=== PATIENT | female | born 1945 | race Caucasian/White ===

== ENCOUNTER → 2017-08-21 16:50 | Outpatient (CLI) | payer MEDICARE, BC ==
[2015-03-20 10:16] VITALS: BMI 25.5
[~2017-08-21 16:50] MED LIST: HYDROCHLOROTHIA25 MG GT; HYDROCODONE-APA1 TAB PO; K-DUR20 MEQ PO; KLONOPIN0.5 MG PO; NORVASC10 MG PO; PLAVIX75 MG PO; PRAVACHOL20 MG PO; PULMICORT0.5 MG/21 UPD; VITAMIN D31000 UNIT PO; ZESTRIL40 MG PO
== END | disposition home or self-care (01) ==
LOC: D.US 16:30
DX: M79.604 Pain in right leg (principal); R22.41 Localized swelling, mass and lump, right lower limb

== ENCOUNTER → 2018-03-05 20:11 | Outpatient (CLI) | payer MEDICARE, BC ==
[2015-03-20 10:16] VITALS: BMI 25.5
== END | disposition home or self-care (01) ==
LOC: D.MAMMO 14:45
DX: Z12.31 Encounter for screening mammogram for malignant neoplasm of breast (principal)

== ENCOUNTER → 2018-03-28 17:30 | Outpatient (CLI) | payer MEDICARE, BC ==
[2015-03-20 10:16] VITALS: BMI 25.5
== END | disposition home or self-care (01) ==
LOC: D.MAMMO 10:30
DX: R92.8 Other abnormal and inconclusive findings on diagnostic imaging of breast (principal)

== ENCOUNTER → 2018-04-10 13:19 | Outpatient (CLI) | payer MEDICARE, BC ==
[2015-03-20 10:16] VITALS: BMI 25.5
== END | disposition home or self-care (01) ==
LOC: D.US 13:19
DX: R92.8 Other abnormal and inconclusive findings on diagnostic imaging of breast (principal)

== ENCOUNTER → 2018-05-08 12:27 | Outpatient (CLI) | payer MEDICARE, BC ==
[2015-03-20 10:16] VITALS: BMI 25.5
== END | disposition home or self-care (01) ==
LOC: D.US 12:27
DX: I65.23 Occlusion and stenosis of bilateral carotid arteries (principal); M79.605 Pain in left leg; M79.604 Pain in right leg

== ENCOUNTER → 2018-07-10 10:04 | Outpatient (CLI) | payer MEDICARE, BC ==
[2015-03-20 10:16] VITALS: BMI 25.5
== END | disposition home or self-care (01) ==
LOC: D.CT 07-08 13:00
DX: M79.605 Pain in left leg (principal); M79.604 Pain in right leg; I73.9 Peripheral vascular disease, unspecified

== ENCOUNTER 2018-07-11 08:22 | Outpatient (CLI) | payer MEDICARE, BC ==
[2015-03-20 10:16] VITALS: BMI 25.5
== END 2018-07-11 23:59 | disposition home or self-care (01) ==
LOC: D.MAMMO 08:22
DX: N63.23 Unspecified lump in the left breast, lower outer quadrant (principal)

== ENCOUNTER 2018-12-11 15:29 | Inpatient (IN) | payer MEDICARE, BC ==
[~2018-12-11] VITALS: Ht 172.7 cm; Wt 76.4 kg
[2018-12-11] MEDS ORDERED: TESSALON PERLE100 MG (15:45)
[2018-12-11 16:09] VITALS: BP 132/75; BMI 25.6
[2018-12-11 16:46] LABS: BASOPHILS 0.4 % (0-2); EOSINOPHILS 0.5 % (0-7); HEMATOCRIT 46.4 % (36.0-48.0); HEMOGLOBIN 15.8 g/dL (12-16); IMMATURE GRANULOCYTES 0.1 % (0-5); LYMPHOCYTES 42.4 % (15-50); MCH 33.1 pg (26.0-34.0); MCHC 34.1 g/dL (31.0-37.0); MCV 97.3 fL (80.0-100.0); MEAN PLATELET VOLUME 11.7 fL (7.4-10.4); MONOCYTES 11.6 % (2-11); RBC 4.77 10x6/uL (4.00-5.40); RDW 13.8 % (11.5-14.5)
[2018-12-11 16:55] LABS: ANION GAP 11.9 mmol/L (8-16); CALCIUM 9.3 mg/dL (8.5-10.1); CARBON DIOXIDE 28.9 mmol/L (21.0-32.0)
[2018-12-11 16:58] LABS: PLATELET COUNT 154 10x3/uL (130-400)
[2018-12-11 17:12] LABS: POTASSIUM - SERUM 2.8 mmol/L (3.5-5.1)
[2018-12-11 20:30] VITALS: BP 106/46
[2018-12-11 20:39] VITALS: BP 167/79
[2018-12-12 00:20] VITALS: BP 139/72
[2018-12-12 05:05] VITALS: BP 183/87
[2018-12-12 06:31] LABS: ALBUMIN 3.1 g/dL (3.4-5.0); ANION GAP 13.9 mmol/L (8-16); BILIRUBIN - TOTAL 0.25 mg/dL (0.2-1.3); CALCIUM 8.8 mg/dL (8.5-10.1); CARBON DIOXIDE 27.5 mmol/L (21.0-32.0); PROTEIN - SERUM 6.5 g/dL (6.4-8.2)
[2018-12-12 06:32] LABS: POTASSIUM - SERUM 3.4 mmol/L (3.5-5.1)
--- NOTE | 2018-12-12 08:13 | HP ---
PATIENT: HUMBERTO CHOW MEDICAL RECORD: [id number] ACCOUNT: [id number] LOCATION:D.[facility] Ramach[facility]ran1 : 47 ADMISSION DATE: 12/11/18 PCP: KIRSTY GONSALEZ MD HISTORY AND PHYSICAL EXAMINATION DATE OF ADMISSION: 12/11/2018 CHIEF COMPLAINT: Cough, shortness of breath. HISTORY OF PRESENT ILLNESS: This is a 73-year-old female who presented to my office today with continued cough and congestion. Her called me the morning of 12/08/2018, with coughing and congestion for a couple of days. I called her out a Z-HIRAM and she started that. Her took her to a walk-in clinic on [address] that afternoon. She had a chest x-ray there. She was given a shot of what sounds like steroids and had a prescription written for Tessalon Perles and Ventolin HFA inhaler. She basically has not gotten any better in the last couple of days. She was brought into the room, in my office, in a wheelchair because she cannot walk very far due to acute shortness of breath. She states just moving around makes her short of breath. She has never had anything like this before. She has long history of smoking and quit she states about 6 months ago. She has no known diagnosis of COPD or emphysema. In my office, her O2 sat was 89-90% on room air. She had episodes of coughing and with her dyspnea, she was directly admitted to [facility]. PAST MEDICAL AND SURGICAL HISTORY: She has high cholesterol, hypertension, coronary artery disease. She has had a TIA. She has osteopenia. 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 PAST SURGICAL HISTORY: She has had a bladder suspension. She has had aortofemoral bypass surgery and has had repair of abdominal aortic aneurysm. HOME MEDICATIONS: Include pravastatin 10 mg at bedtime, Plavix 75 mg once a day, hydrochlorothiazide 25 mg once a day, potassium 20 mEq once a day, clonazepam 0.5 mg 3 times a day for myoclonus. ALLERGIES: ASPIRIN, IODINE AND SHELLFISH. HABITS: Again, former smoker, just quit a few months ago. She drinks alcohol socially. No illicit drug use. FAMILY HISTORY: Noncontributory. PHYSICAL EXAMINATION: VITAL SIGNS: Temperature 98.1, pulse 90, respirations 20, blood pressure 167/79. In my office, she was tachypneic. She had a deep cough. HEENT: Grossly within normal limits. NECK: Supple. No JVD or bruit. HEART: Regular rate and rhythm without murmur. LUNGS: With scattered wheezes and a few rales diffusely. ABDOMEN: Soft. EXTREMITIES: No edema. LABORATORY DATA: Done in the hospital: ABG showed a pH 7.442, pCO2 of 39, pO2 65, O2 sat was 93%. CBC showed a white count of 8000, hemoglobin 15.8, hematocrit 46.4, 45% neutrophils. Sodium 142, potassium 2.8, chloride 104, CO2 HISTORY AND PHYSICAL [id number] CHOW,HUMBERTO NIEVES of 28.9, BUN 25, creatinine 1.0, glucose 101, and calcium 9.3. Chest x-ray is pending. ASSESSMENT: 1. Acute bronchitis. 2. Acute respiratory failure. 3. Possible chronic obstructive pulmonary disease. PLAN: She is admitted, given oxygen, start antibiotics, IV steroids, and respiratory therapy. Pulmonology is being consulted. We will continue her usual home medications. Lovenox is ordered as is Pepcid for stress ulcer prevention. Other tests or procedures as warranted. TRANSINT:[id number] Voice Confirmation ID: [id number] DOCUMENT ID: [id number] KIRSTY GONSALEZ MD at 0813 CC: [id number] DICTATION DATE: 12/12/18 0116 FILLER AND TRIMMER: 12/12/18 0209 ADM IN [facility] [address] [place] [address]
[2018-12-12 09:12] VITALS: BP 183/68
[2018-12-12 12:35] VITALS: Ht 172.7 cm; Wt 76.4 kg
[2018-12-12 16:45] VITALS: BP 165/71
[2018-12-12 20:03] VITALS: BP 175/76
[2018-12-13 00:23] VITALS: BP 139/64
[2018-12-13 05:19] VITALS: BP 124/70
[2018-12-13 07:44] LABS: BILIRUBIN - TOTAL 0.18 mg/dL (0.2-1.3); CALCIUM 8.5 mg/dL (8.5-10.1); CARBON DIOXIDE 23.9 mmol/L (21.0-32.0); PROTEIN - SERUM 6.2 g/dL (6.4-8.2)
[2018-12-13 07:45] LABS: ANION GAP 16.9 mmol/L (8-16); CREATININE - SERUM 1.3 mg/dL (0.6-1.3)
[2018-12-13 07:46] LABS: POTASSIUM - SERUM 2.8 mmol/L (3.5-5.1)
[2018-12-13 08:25] VITALS: BP 179/66
[2018-12-13 12:45] VITALS: BP 124/73
[2018-12-13 16:40] VITALS: BP 153/61
[2018-12-13 19:36] LABS: POTASSIUM - SERUM 2.9 mmol/L (3.5-5.1)
[2018-12-13 20:00] VITALS: BP 104/77
[2018-12-14] VITALS (7 sets, daily range): BP systolic 110–164; BP diastolic 63–81
[2018-12-14 06:05] LABS: ALBUMIN 2.8 g/dL (3.4-5.0); BILIRUBIN - TOTAL 0.26 mg/dL (0.2-1.3); CALCIUM 8.4 mg/dL (8.5-10.1); CARBON DIOXIDE 28.9 mmol/L (21.0-32.0); MAGNESIUM - SERUM 2.1 mg/dL (1.8-2.4); PROTEIN - SERUM 5.7 g/dL (6.4-8.2)
[2018-12-14 06:15] LABS: ANION GAP 11.9 mmol/L (8-16); CREATININE - SERUM 0.9 mg/dL (0.6-1.3); POTASSIUM - SERUM 3.8 mmol/L (3.5-5.1)
[2018-12-15 05:55] VITALS: BP 171/88
[2018-12-15 06:59] LABS: BASOPHILS 0.1 % (0-2); EOSINOPHILS 0 % (0-7); HEMATOCRIT 45.2 % (36.0-48.0); HEMOGLOBIN 15.3 g/dL (12-16); IMMATURE GRANULOCYTES 1.3 % (0-5); LYMPHOCYTES 14.3 % (15-50); MCH 32.8 pg (26.0-34.0); MCHC 33.8 g/dL (31.0-37.0); MCV 96.8 fL (80.0-100.0); MEAN PLATELET VOLUME 12.5 fL (7.4-10.4); MONOCYTES 4.3 % (2-11); PLATELET COUNT 175 10x3/uL (130-400); RBC 4.67 10x6/uL (4.00-5.40); RDW 14.3 % (11.5-14.5); WBC 12.8 10x3/uL (4.8-10.8)
[2018-12-15 07:14] LABS: ALBUMIN 2.8 g/dL (3.4-5.0); ANION GAP 11.6 mmol/L (8-16); BILIRUBIN - TOTAL 0.31 mg/dL (0.2-1.3); CALCIUM 8.3 mg/dL (8.5-10.1); CARBON DIOXIDE 29.2 mmol/L (21.0-32.0); CREATININE - SERUM 1.1 mg/dL (0.6-1.3); POTASSIUM - SERUM 3.8 mmol/L (3.5-5.1); PROTEIN - SERUM 5.9 g/dL (6.4-8.2)
[2018-12-15 08:13] VITALS: BP 122/70
[2018-12-15 12:37] VITALS: BP 120/68
[2018-12-15 16:29] VITALS: BP 128/69
[2018-12-15 21:07] VITALS: BP 186/71
[2018-12-16 01:43] VITALS: BP 168/96
[2018-12-16 05:06] LABS: BASOPHILS 0.1 % (0-2); EOSINOPHILS 0 % (0-7); HEMATOCRIT 44.7 % (36.0-48.0); HEMOGLOBIN 14.8 g/dL (12-16); IMMATURE GRANULOCYTES 1.8 % (0-5); LYMPHOCYTES 18.9 % (15-50); MCH 32.2 pg (26.0-34.0); MCHC 33.1 g/dL (31.0-37.0); MCV 97.4 fL (80.0-100.0); MEAN PLATELET VOLUME 12.3 fL (7.4-10.4); MONOCYTES 8.7 % (2-11); NEUTROPHILS 70.5 % (40-80); PLATELET COUNT 176 10x3/uL (130-400); RBC 4.59 10x6/uL (4.00-5.40); RDW 14.6 % (11.5-14.5); WBC 11.8 10x3/uL (4.8-10.8)
[2018-12-16 05:36] VITALS: BP 146/71
[2018-12-16 05:36] LABS: ALBUMIN 2.7 g/dL (3.4-5.0); ANION GAP 9.6 mmol/L (8-16); BILIRUBIN - TOTAL 0.33 mg/dL (0.2-1.3); CALCIUM 8.3 mg/dL (8.5-10.1); CARBON DIOXIDE 29.4 mmol/L (21.0-32.0); CREATININE - SERUM 0.9 mg/dL (0.6-1.3); PROTEIN - SERUM 5.5 g/dL (6.4-8.2)
[2018-12-16 08:09] VITALS: BP 167/82
[2018-12-16 12:11] VITALS: BP 170/79
--- NOTE | 2018-12-16 14:27 | MORECARE ---
CASE MANAGEMENT DISCHARGE SUMMARY PATIENT: HUMBERTO CHOW UNIT: [id number] ADM DATE: 12/11/18 AGE: 73 : 46 SEX: F ROOM/BED: D.2211 AUTHOR: NOVA GUERRA PHYSICIAN: REFERRING PHYSICIAN: KIRSTY GONSALEZ MD DATE OF SERVICE: 12/16/18 Discharge Plan Patient Name: HUMBERTO CHWO [facility] [facility] 1945 Planned Disposition: Home Anticipated Discharge Date: Discharge Date: Expected LOS: Initial Reviewer: [email or web address] Initial Review Date: 12/11/2018 Generated: 12/16/18 3:27 pm DCPIA - Discharge Planning Initial Assessment Updated by [email or web address]: Perla Alcala on 12/16/18 2:27 pm * Is the patient Alert and Oriented? Yes * How many steps to enter\exit or inside your home? * PCP Daniel * Pharmacy [facility] * Preadmission Environment Home with Family * ADLs Independent * Equipment Cane Rolling Walker * List name and contact numbers for known caregivers / representatives who currently or will assist patient after discharge: Simon ([phone]) * Verbal permission to speak to the caregivers and representatives has been obtained from the patient. N/A * Community resources currently utilized None * Additional services required to return to the preadmission environment? No * Can the patient safely return to the preadmission environment? Yes * Has this patient been hospitalized within the prior 30 days at any hospital? No Patient Name: HUMBERTO CHOW Page [phone] at 1427 All edits/amendments must be made on the electronic document DICTATION DATE: 12/16/181426 COSMETIC MAKER: RODRIGO 12/16/18 142 RPT#: [id number] DC DATE: STATUS: ADM IN [facility] [address] [place] [address] END OF REPORT
--- NOTE | 2018-12-16 14:36 | MORECARE ---
CASE MANAGEMENT DISCHARGE SUMMARY PATIENT: HUMBERTO CHOW UNIT: [id number] ADM DATE: 12/11/18 AGE: 73 : 46 SEX: F ROOM/BED: D.2211 AUTHOR: NOVA GUERRA PHYSICIAN: REFERRING PHYSICIAN: KIRSTY GONSALEZ MD DATE OF SERVICE: 12/16/18 Discharge Plan Patient Name: HUMBERTO CHOW Facility: [facility]:[place] : 1945 Planned Disposition: Home Anticipated Discharge Date: Discharge Date: Expected LOS: Initial Reviewer: [email or web address] Initial Review Date: 12/11/2018 Generated: 12/16/18 3:36 pm Comments DCP- Discharge Planning Updated by [id number]: Perla Alcala on 12/16/18 1:[address] Patient Name: HUMBERTO CHOW Admission Status: Urgent Accout number: [id number] Admission Date: 12-11-2018 : 1945 Admission Diagnosis: Attending: KIRSTY GONSALEZ Current LOS: 5 Anticipated DC Date: Planned Disposition: Home Primary Insurance: MEDICARE A & B Discharge Planning Comments: CM met with patient to complete initial dc planning assessment. CM educated patient on the CM role and verbal consent given by patient to complete assessment. Patient lives at home with her spouse where she is independent with her care. At discharge patient plans to return home and feels this is a safe discharge. Her will be her entry level truck driver home. CM discussed availability of home health, rehab services, and medical equipment. Patient stated that she has a walker and a cane, but does not use either. Patient denied known discharge needs at this time. IMM served and explained CM will continue to follow and will assist as needed with dc plans/needs. Cub Reporter: Perla Alcala DCPIA - Discharge Planning Initial Assessment Updated by [email or web address]: Perla Alcala on 12/16/18 2:27 pm * Is the patient Alert and Oriented? Yes * How many steps to enter\exit or inside your home? * PCP Daniel * Pharmacy [facility] * Preadmission Environment Home with Family * ADLs Independent * Equipment Cane Rolling Walker * List name and contact numbers for known caregivers / representatives who currently or will assist patient after discharge: Simon ([phone]) * Verbal permission to speak to the caregivers and representatives has been obtained from the patient. N/A * Community resources currently utilized None * Additional services required to return to the preadmission environment? No * Can the patient safely return to the preadmission environment? Yes * Has this patient been hospitalized within the prior 30 days at any hospital? No Coverage Notice Reviewer: [id number] Kirk Alcala Notice Issued Date-Time: 12/16/2018 13:00 Notice Type: IM Discharge Notice Notice Delivered To: Patient Relationship to Patient: Inspector Watch Parts Name: Delivery Method: HAND - Hand Delivered Marybeth Days: Prior Verbal Notification: Recipient Understood Notice: Yes Recipient Signature: Yes Med Rec Note Co-signed by Attending: Coverage Notice Comment: Last DP export: 12/16/18 1:27 p Patient Name: HUMBERTO CHOW Page [phone] at 1436 All edits/amendments must be made on the electronic document DICTATION DATE: 12/16/181434 GENERAL OPHTHALMOLOGIST: RODRIGO 12/16/181434 RPT#: [id number] DC DATE: STATUS: ADM IN [facility] [address] [place] [address] END OF REPORT
[2018-12-16 15:41] VITALS: BP 182/85
[2018-12-16 20:52] VITALS: BP 164/84
[2018-12-17 00:53] VITALS: BP 147/76
[2018-12-17 05:42] VITALS: BP 164/83
[2018-12-17 06:06] LABS: BASOPHILS 0.2 % (0-2); EOSINOPHILS 0 % (0-7); HEMATOCRIT 45.7 % (36.0-48.0); HEMOGLOBIN 15.3 g/dL (12-16); LYMPHOCYTES 19.9 % (15-50); MCH 32.7 pg (26.0-34.0); MCHC 33.5 g/dL (31.0-37.0); MCV 97.6 fL (80.0-100.0); MONOCYTES 7.4 % (2-11); NEUTROPHILS 70.5 % (40-80); PLATELET COUNT 176 10x3/uL (130-400); RBC 4.68 10x6/uL (4.00-5.40); RDW 14.7 % (11.5-14.5); WBC 13.2 10x3/uL (4.8-10.8)
[2018-12-17 06:24] LABS: ALBUMIN 2.6 g/dL (3.4-5.0); ANION GAP 10.2 mmol/L (8-16); BILIRUBIN - TOTAL 0.32 mg/dL (0.2-1.3); CALCIUM 8.5 mg/dL (8.5-10.1); CARBON DIOXIDE 30.2 mmol/L (21.0-32.0); CREATININE - SERUM 1.1 mg/dL (0.6-1.3); POTASSIUM - SERUM 4.4 mmol/L (3.5-5.1); PROTEIN - SERUM 5.5 g/dL (6.4-8.2)
[2018-12-17 09:13] VITALS: BP 172/83
[2018-12-17 14:08] VITALS: BP 171/60
--- NOTE | 2018-12-17 14:26 | MORECARE ---
CASE MANAGEMENT DISCHARGE SUMMARY PATIENT: HUMBERTO CHOW UNIT: [id number] ADM DATE: 12/11/18 AGE: 73 : 46 SEX: F ROOM/BED: D.2211 AUTHOR: NOVA GUERRA PHYSICIAN: REFERRING PHYSICIAN: KIRSTY GONSALEZ MD DATE OF SERVICE: 12/17/18 Discharge Plan Patient Name: HUMBERTO CHOW Facility: [facility]:[place] : 1945 Planned Disposition: Home Anticipated Discharge Date: Discharge Date: Expected LOS: Initial Reviewer: [email or web address] Initial Review Date: 12/11/2018 Generated: 12/17/18 3:26 pm Comments DCP- Discharge Planning Updated by [email or web address]: Perla Alcala on 12/16/18 1:[address] Patient Name: HUMBERTO CHOW Admission Status: Urgent Accout number: [id number] Admission Date: 12-11-2018 : 1945 Admission Diagnosis: Attending: KIRSTY GONSALEZ Current LOS: 5 Anticipated DC Date: Planned Disposition: Home Primary Insurance: MEDICARE A & B Discharge Planning Comments: CM met with patient to complete initial dc planning assessment. CM educated patient on the CM role and verbal consent given by patient to complete assessment. Patient lives at home with her spouse where she is independent with her care. At discharge patient plans to return home and feels this is a safe discharge. 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 CM discussed availability of home health, rehab services, and medical equipment. Patient stated that she has a walker and a cane, but does not use either. Patient denied known discharge needs at this time. IMM served and explained CM will continue to follow and will assist as needed with dc plans/needs. Rabbit Breeder: Perla Alcala DCPIA - Discharge Planning Initial Assessment Updated by [email or web address]: Perla Alcala on 12/16/18 2:27 pm * Is the patient Alert and Oriented? Yes * How many steps to enter\exit or inside your home? * PCP Daniel * [facility]acy [facility] * Preadmission Environment Home with Family * ADLs Independent * Equipment Cane Rolling Walker * List name and contact numbers for known caregivers / representatives who currently or will assist patient after discharge: Simon ([phone]) * Verbal permission to speak to the caregivers and representatives has been obtained from the patient. N/A * Community resources currently utilized None * Additional services required to return to the preadmission environment? No * Can the patient safely return to the preadmission environment? Yes * Has this patient been hospitalized within the prior 30 days at any hospital? No External Providers External Provider: Joselo Benitez Contact Date: Service Request Date: Service Type: Resolution: Reviewer: Comments: Coverage Notice Reviewer: [email or web address] Kirk Alcala Notice Issued Date-Time: 12/16/2018 13:00 Notice Type: IM Discharge Notice Notice Delivered To: Patient Relationship to Patient: Therapy Teacher Name: Delivery Method: HAND - Hand Delivered Marybeth Days: Prior Verbal Notification: Recipient Understood Notice: Yes Recipient Signature: Yes Med Rec Note Co-signed by Attending: Coverage Notice Comment: Last DP export: 12/16/18 1:36 p Patient Name: HUMBERTO CHOW Page [phone] at 1426 All edits/amendments must be made on the electronic document DICTATION DATE: 12/17/18 1426 CHEMICAL PROCESS OPERATOR: RODRIGO 12/17/18 1426 RPT#: [id number] DC DATE: STATUS: ADM IN [facility] [address] [place] [address] END OF REPORT
[2018-12-17] MEDS ORDERED: PREDNISONE20 MG PO (16:43)
[2018-12-17] MEDS ORDERED: BREO ELLIPTA 21 EACH (17:16)
[2018-12-17 17:47] VITALS: BP 165/66
--- NOTE | 2018-12-18 12:27 | MORECARE ---
CASE MANAGEMENT DISCHARGE SUMMARY PATIENT: HUMBERTO CHOW UNIT: [id number] ADM DATE: 12/11/18 AGE: 73 : 46 SEX: F ROOM/BED: D.2211 AUTHOR: NOVA GUERRA PHYSICIAN: REFERRING PHYSICIAN: KIRSTY GONSALEZ MD DATE OF SERVICE: 12/18/18 Discharge Plan Patient Name: HUMBERTO CHOW Facility: [facility]:[place] : 1945 Planned Disposition: Home Anticipated Discharge Date: Discharge Date: 12/17/2018 Expected LOS: 0 Initial Reviewer: [email or web address] Initial Review Date: 12/11/2018 Generated: 12/18/18 1:27 pm Comments DCP- Discharge Planning Updated by [email or web address]: Perla Alcala on 12/16/18 1:[address] Patient Name: HUMBERTO CHOW Admission Status: Urgent Accout number: [id number] Admission Date: 12-11-2018 : 1945 Admission Diagnosis: Attending: KIRSTY GONSALEZ Current LOS: 5 Anticipated DC Date: Planned Disposition: Home Primary Insurance: MEDICARE A & B Discharge Planning Comments: CM met with patient to complete initial dc planning assessment. CM educated patient on the CM role and verbal consent given by patient to complete assessment. Patient lives at home with her spouse where she is independent with her care. At discharge patient plans to return home and feels this is a safe discharge. Her will be her screw driver operator home. CM discussed availability of home health, rehab services, and medical equipment. Patient stated that she has a walker and a cane, but does not use either. Patient denied known discharge needs at this time. IMM served and explained CM will continue to follow and will assist as needed with dc plans/needs. Director Of Group Sales: Perla Alcala DCPIA - Discharge Planning Initial Assessment Updated by [email or web address]: Perla Alcala on 12/16/18 2:27 pm * Is the patient Alert and Oriented? Yes * How many steps to enter\exit or inside your home? * PCP Daniel * [facility] * Preadmission Environment Home with Family * ADLs Independent * Equipment Cane Rolling Walker * List name and contact numbers for known caregivers / representatives who currently or will assist patient after discharge: Simon ([phone]) * Verbal permission to speak to the caregivers and representatives has been obtained from the patient. N/A * Community resources currently utilized None * Additional services required to return to the preadmission environment? No * Can the patient safely return to the preadmission environment? Yes * Has this patient been hospitalized within the prior 30 days at any hospital? No Coverage Notice Reviewer: [id number] Kirk Alcala Notice Issued Date-Time: 12/16/2018 13:00 Notice Type: IM Discharge Notice Notice Delivered To: Patient Relationship to Patient: Marshmallow Maker Name: Delivery Method: HAND - Hand Delivered Marybeth Days: Prior Verbal Notification: Recipient Understood Notice: Yes Recipient Signature: Yes Med Rec Note Co-signed by Attending: Coverage Notice Comment: Last DP export: 12/17/18 1:26 p Patient Name: HUMBERTO CHOW Page [phone] at 1227 All edits/amendments must be made on the electronic document DICTATION DATE: 12/18/181226 MANUFACTURE SPECIALIST: RODRIGO 12/18/187 RPT#: [id number] DC DATE:12/17/18 STATUS: DIS IN [facility] [address] [place] [address] END OF REPORT
== END 2018-12-17 19:30 | disposition home or self-care (01) | DRG 189 ==
LOC: D.MS 15:29
PROVIDERS: Family Medicine; ADMIT Family Medicine; ATTEND Family Medicine
DX: J96.01 Acute respiratory failure with hypoxia (principal); J44.0 Chronic obstructive pulmonary disease with (acute) lower respiratory infection; J44.1 Chronic obstructive pulmonary disease with (acute) exacerbation; J20.9 Acute bronchitis, unspecified; I73.9 Peripheral vascular disease, unspecified; I10 Essential (primary) hypertension; I25.10 Atherosclerotic heart disease of native coronary artery without angina pectoris; J30.9 Allergic rhinitis, unspecified; E78.5 Hyperlipidemia, unspecified; Z86.73 Personal history of transient ischemic attack (TIA), and cerebral infarction without residual deficits

== ENCOUNTER → 2019-01-06 09:30 | Outpatient (CLI) | payer MEDICARE, BC ==
[2018-12-12 12:35] VITALS: BMI 25.6
[~2019-01-06 09:30] MED LIST changes: +BREO ELLIPTA 21 EACH; +PREDNISONE20 MG PO; +TESSALON PERLE100 MG
== END | disposition home or self-care (01) ==
LOC: D.MAMMO 09:30
PROVIDERS: ATTEND Obstetrics & Gynecology
DX: R92.8 Other abnormal and inconclusive findings on diagnostic imaging of breast (principal)

== ENCOUNTER → 2019-01-09 13:05 | Outpatient (CLI) | payer MEDICARE, BC ==
[2018-12-12 12:35] VITALS: BMI 25.6
== END | disposition home or self-care (01) ==
LOC: D.CT 01-08 15:00
PROVIDERS: ATTEND Family Medicine
DX: M48.061 Spinal stenosis, lumbar region without neurogenic claudication (principal)

== ENCOUNTER → 2019-01-21 08:38 | Outpatient (CLI) | payer MEDICARE, BC ==
[2018-12-12 12:35] VITALS: BMI 25.6
== END | disposition home or self-care (01) ==
LOC: D.US 01-17 14:00
PROVIDERS: ATTEND Internal Medicine Cardiovascular Disease
DX: I65.23 Occlusion and stenosis of bilateral carotid arteries (principal)

== ENCOUNTER → 2019-01-30 13:36 | Outpatient (CLI) | payer MEDICARE, BC ==
[2018-12-12 12:35] VITALS: BMI 25.6
== END | disposition home or self-care (01) ==
LOC: D.CT 13:36
PROVIDERS: ATTEND Internal Medicine Cardiovascular Disease
DX: I65.23 Occlusion and stenosis of bilateral carotid arteries (principal)

== ENCOUNTER 2019-02-17 08:35 | Inpatient (IN) | payer MEDICARE, BC ==
[~2019-02-17] VITALS: Ht 170.2 cm; Wt 81.6 kg
[~2019-02-17 08:35] MED LIST changes: -HYDROCHLOROTHIA25 MG GT; +HYDROCHLOROTHIA25 MG PO
[2019-02-17] MEDS ORDERED: KLONOPIN0.5 MG PO (09:43)
[2019-02-17] MEDS ORDERED: PLAVIX75 MG PO (09:44)
[2019-02-17] MEDS ORDERED: ALBUTEROL SULF8.5 GM INH (09:46)
[2019-02-17] MEDS ORDERED: [UNRECOGNIZED DRUG - REMARK] INH (09:48)
[2019-02-17] MEDS ORDERED: OS-CAL500 MG PO (09:49)
[2019-02-17 10:58] LABS: HEMATOCRIT 44.7 % (36.0-48.0); HEMOGLOBIN 14.9 g/dL (12-16); MCHC 33.3 g/dL (31.0-37.0); MCV 98.9 fL (80.0-100.0); MEAN PLATELET VOLUME 11.9 fL (7.4-10.4); RBC 4.52 10x6/uL (4.00-5.40); RDW 14.4 % (11.5-14.5); WBC 8.8 10x3/uL (4.8-10.8)
[2019-02-17 11:04] LABS: APPEARANCE CLEAR (CLEAR); BILIRUBIN NEGATIVE (NEGATIVE); COLOR STRAW (YELLOW); GLUCOSE NEGATIVE (NEGATIVE); KETONE NEGATIVE (NEGATIVE); NITRITE NEGATIVE (NEGATIVE); PROTEIN NEGATIVE (NEGATIVE); SPECIFIC GRAVITY 1.005 (1.005-1.020); UROBILINOGEN NORMAL (NORMAL)
[2019-02-17 11:06] LABS: APTT 48.1 SECONDS (22.8-39.4); PROTIME 12.7 SECONDS (11.6-15.0)
[2019-02-17 11:13] LABS: ALBUMIN 3.6 g/dL (3.4-5.0); ANION GAP 11.4 mmol/L (8-16); BILIRUBIN - TOTAL 0.54 mg/dL (0.2-1.3); CALCIUM 9.5 mg/dL (8.5-10.1); POTASSIUM - SERUM 3.4 mmol/L (3.5-5.1)
[2019-02-19] VITALS (37 sets, daily range): BP systolic 98–134; BP diastolic 51–79; Ht 170.2 cm; Wt 81.6 kg
[2019-02-19] MEDS ORDERED: IPRAT-ALBUT 0.5-3 ML UPD (05:26)
--- NOTE | 2019-02-19 11:01 | NUR ---
REC'D PT TO CVICU AT 1052. GILBERT, VSS, DOPAMINE AT 3MCG/KG/MIN.
--- NOTE | 2019-02-19 13:27 | NUR ---
PT C/O PAIN TO OP SITE. ULTRAM GIVEN.
--- NOTE | 2019-02-19 18:48 | NUR ---
DR GONSALEZ HERE ON ROUNDS. NITRO TITRATING FOR ORDERED BP PARAMETERS.
--- NOTE | 2019-02-19 19:47 | NUR ---
PT RECEIVED WITH EYES OPEN WATCHING TV. ALERT AND ORIENTED. DRESSING TO RIGHT CAROTID C/D/I WITH NO SWELLING NOTED. AGUILA DRAIN COMPRESSED WITH DRESSING C/D/I. DENIES PAIN AT THIS TIME. CRITICORE ALICIA PATENT WITH TEMP 37.1C, WITH CLEAR YELLOW URINE. WILL CONTINUE TO OBSERVE.
--- NOTE | 2019-02-19 21:40 | NUR ---
SCHEDULED MEDICATIONS GIVEN. VSS. AGUILA DRAIN COMPRESSED. VSS. NO COMPLAINTS OF PAIN AT THIS TIME. CALL LIGHT IN REACH. WILL CONTINUE TO OBSERVE.
--- NOTE | 2019-02-19 23:30 | NUR ---
REASSESSMENT COMPLETED. SEE FLOW SHEET. AGUILA DRAIN COMPRESSED. VSS. WILL CONTINUE TO OBSERVE.
[2019-02-20] VITALS (41 sets, daily range): BP systolic 98–147; BP diastolic 35–98
--- NOTE | 2019-02-20 01:46 | NUR ---
PT RESTING WITH EYES CLOSED AND CHEST RISING. EASILY AWOKEN TO VERBAL STIMULI. SPO2 DECREASED AND ASSESSED, N/C SHIFTED OF NOSE, AND REPLACED. NO OTHER CONCERNS NOTED. RIGHT SIDE NECK DRESSING C/D/I WITH NO SWELLING NOTED. WILL CONTINUE TO OBSERVE.
--- NOTE | 2019-02-20 05:35 | NUR ---
OR NURSE IN TO ASSESS PT. AGUILA DRAIN PULLED AND COVERED WITH DRY DRESSING AND TRANSPARENT DRESSING. SAND BAG PLACE OVER SITE, TO BE REMOVED IN 30 MINS, SAND BAG PLACE AT 0515.
--- NOTE | 2019-02-20 09:00 | NUR ---
A LINE AND ALICIA REMOVED PER PROTOCOL, ASSISTED UP TO CHAIR
--- NOTE | 2019-02-20 09:38 | NUR ---
0700 PT RECIEVED IN BED ALERT AND ORIENTED O2 1L NC L SUBCLAVIAN CVL DRESSING CDI, L RADIAL A LINE ZEROED, GOOD WAVEFORM AND WRIST PROTECTOR IN PLACE, R CEA INCISION DRESSING CDI, CALL LIGHT WITHIN REACH, SEE SHIFT ASSESSMENT FOR DETIALS 0930 AMBULATED WITH PT
--- NOTE | 2019-02-20 13:23 | CN ---
PATIENT NAME:HUMBERTO CHOW MEDICAL RECORD: [id number] : [birth year] LOCATION:[facility] ADMIT DATE: 02/19/19 ACCOUNT: [id number] CONSULTING PHYSICIAN: KIRSTY GONSALEZ MD REFERRING PHYSICIAN: MARIBELL SELLERS MD DATE OF CONSULTATION: 02/19/2019 REASON FOR CONSULTATION: Medical management. CONSULT REQUESTED BY: Dr. Verito Sellers. HISTORY OF PRESENT ILLNESS: This is a 73-year-old female who was admitted by Dr. Sellers for carotid occlusive disease. She underwent right carotid endarterectomy today. 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 PAST SURGICAL HISTORY: Aortofemoral bypass surgery, repair of abdominal aortic aneurysm, and a bladder suspension. ALLERGIES: ASPIRIN, IODINE, AND SHELLFISH. HABITS: Former smoker, just quit a few months ago. She drinks alcohol socially. No illicit drug use. FAMILY HISTORY: Noncontributory. HOME MEDICATIONS: Include albuterol via nebulizer q.4 hours p.r.n. wheeze. She takes DuoNeb 4 times a day, Plavix 75 mg once a day, pravastatin 10 mg at bedtime, clonazepam 0.5 mg 3 times a day for myoclonus, hydrochlorothiazide 25 mg p.o. every day, potassium 20 mEq once a day, calcium carbonate 1 at bedtime, Breo Ellipta 200/25 one puff every morning, vitamin D3 2000 units daily. SOCIAL HISTORY: She is and retired. REVIEW OF SYSTEMS: GENERAL: No major weight changes. HEENT: No particular sinus or allergy problems. RESPIRATORY: Recent hospitalization in December for first time COPD exacerbation. She is now followed by [facility] pulmonologists. CARDIAC: No known history of coronary disease, but does have carotid occlusive disease and peripheral artery disease. GASTROINTESTINAL: No significant diarrhea, constipation, or nausea. GENITOURINARY: No significant problems there. MUSCULOSKELETAL: He has had back problems. NEUROLOGIC: No seizures. No migraines. PSYCHIATRIC: Denies depression or melancholia. PHYSICAL EXAMINATION: VITAL SIGNS: Temperature 98.6, pulse 88, respirations 17, blood pressure 116/67, O2 sat 94%. GENERAL: She is awake and alert. She does not appear in distress. She has a bandage over her right carotid artery. CONSULT REPORT [id number] HUMBERTO CHOW HEENT: Grossly within normal limits. HEART: Regular rate and rhythm. LUNGS: Fairly clear. No wheeze. ABDOMEN: Soft. EXTREMITIES: No edema. LABORATORY DATA: Preop lab is reviewed showing CBC, CMP is all okay. INR 1.0. Urinalysis is normal. Chest x-ray today shows no acute cardiopulmonary process seen. ASSESSMENT: 1. Hypertension. 2. Carotid occlusive disease. 3. Hyperlipidemia. 4. Chronic obstructive pulmonary disease. PLAN: We will continue postop care. Continue her usual medications. Other tests or procedures as warranted. Thank you for this consult. I will follow her with you throughout her hospitalization. TRANSINT:[id number] Voice Confirmation ID: [id number] DOCUMENT ID: [id number] KIRSTY GONSALEZ MD at 1323 CC: [id number] DICTATION DATE: 02/19/192357 SOFT CRAB SHEDDER: 02/20/19 [address] [facility] [address] [place] [id number]
--- NOTE | 2019-02-20 16:36 | NUR ---
1100 PT ASSISTED WITH CHG BATH 1300 AMBULATED WITH THERAPY 1500 PT REPOSITIONED IN CHAIR 1630 DINNER TRAY SERVED, FAMILY HERE FOR VISITATION
--- NOTE | 2019-02-20 18:58 | MORECARE ---
CASE MANAGEMENT DISCHARGE SUMMARY PATIENT: HUMBERTO CHOW UNIT: [id number] ADM DATE: 02/19/19 AGE: 73 : 47 SEX: F ROOM/BED: [facility] AUTHOR: NOVA GUERRA PHYSICIAN: REFERRING PHYSICIAN: MARIBELL SELLERS MD DATE OF SERVICE: 02/20/19 Discharge Plan Patient Name: HUMBERTO CHOW [facility] : 1945 Planned Disposition: Home Anticipated Discharge Date: Discharge Date: Expected LOS: Initial Reviewer: [email or web address] Initial Review Date: 02/20/2019 Generated: 02/20/19 7:57 pm DCPIA - Discharge Planning Initial Assessment Updated by [email or web address]: Audelia Camilo on 02/20/19 6:55 pm * Is the patient Alert and Oriented? Yes * How many steps to enter\exit or inside your home? 3-4 * PCP WALLACE * Pharmacy [facility] * Preadmission Environment Home with Family * ADLs Independent * Other Equipment CANE, WALKER, W/C, HOME 02 ([facility]) * List name and contact numbers for known caregivers / representatives who currently or will assist patient after discharge: MARYLU CHOW - SPOUSE - [phone], [phone] * Verbal permission to speak to the caregivers and representatives has been obtained from the patient. Yes * Community resources currently utilized None * Additional services required to return to the preadmission environment? No * Can the patient safely return to the preadmission environment? Yes * Has this patient been hospitalized within the prior 30 days at any hospital? Yes Patient Name: HUMBERTO CHOW Page [phone] at 1858 All edits/amendments must be made on the electronic document DICTATION DATE: 02/20/191856 SCOURING TRAIN OPERATOR CHIEF: RODRIGO 02/20/191856 RPT#: [id number] DC DATE: STATUS: ADM IN [facility] [address] [place] [address] END OF REPORT
--- NOTE | 2019-02-20 19:00 | NUR ---
INITIAL ASSESSMENT COMPLETE, SEE FLOW SHEET FOR FURTHER, PT AAOx4, DENIES PAIN OR NEEDS, SITTING IN BED, NO ACUTE S/S OF DISTRESS NOTED, VSS, WILL CONTINUE TO MONITOR
--- NOTE | 2019-02-20 19:06 | MORECARE ---
CASE MANAGEMENT DISCHARGE SUMMARY PATIENT: HUMBERTO CHOW UNIT: [id number] ADM DATE: 02/19/19 AGE: 73 : [birth year] SEX: F ROOM/BED: D[facility] AUTHOR: CHARLIE,DOC PHYSICIAN: REFERRING PHYSICIAN: MARIBELL SELLERS MD DATE OF SERVICE: 02/20/19 Discharge Plan Patient Name: HUMBERTO CHOW Facility: [facility]:[place] : 1945 Planned Disposition: Home Anticipated Discharge Date: Discharge Date: Expected LOS: Initial Reviewer: [email or web address] Initial Review Date: 02/20/2019 Generated: 02/20/19 8:05 pm Comments DCP- Discharge Planning Updated by [email or web address]: Audelia Camilo on 02/20/19 5:[address] Patient Name: HUMBERTO CHOW Admission Status: Elective Accout number: [id number] Admission Date: 02-19-2019 : 1945 Admission Diagnosis: Attending: MARIBELL SELLERS Current LOS: 1 Anticipated DC Date: Planned Disposition: Home Primary Insurance: MEDICARE A & B Discharge Planning Comments: CM met with patient to complete initial dc planning assessment. CM educated patient on the CM role and verbal consent given by patient to complete assessment. Patient lives at home with her where she is independent with her care. At discharge patient plans to return home and feels this is a safe discharge. CM discussed availability of home health, rehab services, and medical equipment. Her will drive her home. Patient has home o2 @ HS ( [facility]) Patient denied known discharge needs at this time. CM will continue to follow and will assist as needed with dc plans/needs. Aquatic Centre Manager: Audelia Camilo DCPIA - Discharge Planning Initial Assessment Updated by [email or web address]: Audelia Camilo on 02/20/19 6:55 pm * Is the patient Alert and Oriented? Yes * How many steps to enter\exit or inside your home? 3-4 * PCP [facility] * Pharmacy [facility] * Preadmission Environment Home with Family * ADLs Independent * Other Equipment CANE, WALKER, W/C, HOME 02 ([facility]) * List name and contact numbers for known caregivers / representatives who currently or will assist patient after discharge: MARYLU CHOW - SPOUSE - [phone], [phone] * Verbal permission to speak to the caregivers and representatives has been obtained from the patient. Yes * Community resources currently utilized None * Additional services required to return to the preadmission environment? No * Can the patient safely return to the preadmission environment? Yes * Has this patient been hospitalized within the prior 30 days at any hospital? Yes Last DP export: 02/20/19 5:58 p Patient Name: HUMBERTO CHOW Page 11458 at 1906 All edits/amendments must be made on the electronic document DICTATION DATE: 02/20/191904 IT NETWORK ENGINEER: RODRIGO 02/20/191904 RPT#: [id number] DC DATE: STATUS: ADM IN [facility] [address] [place] [address] END OF REPORT
--- NOTE | 2019-02-20 23:00 | NUR ---
REASSESSMENT COMPLETE SEE FLOW SHEET, NO ACUTE CHANGES OR S/S OF DISTRESS, VSS, WILL CONTINUE POC
[2019-02-21] VITALS (13 sets, daily range): BP systolic 91–132; BP diastolic 47–70
--- NOTE | 2019-02-21 03:00 | NUR ---
REASSESSMENT COMPLETE SEE FLOW SHEET, PT AWAKE DOING FACE MAKE-UP, DENIES PAIN OR NEEDS, VSS
--- NOTE | 2019-02-21 06:00 | NUR ---
ASSISTED PT OOB TO CHAIR, SMALL CUP H2O GIVEN PER REQUEST, VSS, PT DENIES PAIN OR OTHER NEEDS AT THIS TIME
--- NOTE | 2019-02-21 07:28 | NUR ---
0700 PT RECIEVED UP IN CHAIR ALERT AN DORIENTED O2 2L NC REMOVED AND ON ROOM AIR, LSUBCLAVIAN CVL DRESSING CDI SL, R CEA INCISION DRESSING CDI, NSR, SEE SHIFT ASSESSMENT FOR DETAILS
[2019-02-21] MEDS ORDERED: PLAVIX75 MG PO (08:32)
[2019-02-21] MEDS ORDERED: ULTRAM50 MG PO (08:35)
--- NOTE | 2019-02-21 09:00 | NUR ---
AMBULATED WITH THERAPY
--- NOTE | 2019-02-21 10:16 | NUR ---
CVL DCD PER PROTOCOL TIP INTACT
--- NOTE | 2019-02-21 12:37 | NUR ---
DC INSTRUCTIONS REVIEWED BY EMIGDIO GRANADO AND MYSELF WITH PT AND , BOTH DENY ANY QUESTIONS, ASSISTED TO CAR AT 1230
--- NOTE | 2019-02-21 16:45 | MORECARE ---
CASE MANAGEMENT DISCHARGE SUMMARY PATIENT: HUMBERTO CHOW UNIT: [id number] ADM DATE: 02/19/19 AGE: 73 : [birth year] SEX: F ROOM/BED: D.03 AUTHOR: CHARLIE,DOC PHYSICIAN: REFERRING PHYSICIAN: MARIBELL SELLERS MD DATE OF SERVICE: 02/21/19 Discharge Plan Patient Name: HUMBERTO CHOW Facility: [facility]:[place] : 1945 Planned Disposition: Home Anticipated Discharge Date: Discharge Date: 02/21/2019 Expected LOS: Initial Reviewer: [email or web address] Initial Review Date: 02/20/2019 Generated: 02/21/19 5:45 pm Comments DCP- Discharge Planning Updated by [email or web address]: Audelia Camilo on 02/21/19 3:[address] Patient Name: HUMBERTO CHOW Encounter No: [id number] : 1945 Primary Insurance: MEDICARE A & B Anticipated DC Date: Planned Disposition: Home External Planned Provider: : D/C IMM EXPLAINED AND SIGNED 02/21/19 @ 1055 DCP follow-up note: Patient and family in agreement with discharge plan. No changes to plan. Case management will follow and assist as needed. Audelia Camilo DCP- Discharge Planning Updated by [email or web address]: Audelia Camilo on 02/20/19 5:[address] Patient Name: HUMBERTO CHOW Admission Status: Elective Accout number: [id number] Admission Date: 02-19-2019 : 1945 Admission Diagnosis: Attending: MARIBELL SELLERS Current LOS: 1 Anticipated DC Date: Planned Disposition: Home Primary Insurance: MEDICARE A & B Discharge Planning Comments: CM met with patient to complete initial dc planning assessment. CM educated patient on the CM role and verbal consent given by patient to complete assessment. Patient lives at home with her where she is independent with her care. At discharge patient plans to return home and feels this is a safe discharge. CM discussed availability of home health, rehab services, and medical equipment. Her will drive her home. Patient has home o2 @ [facility] ( [facility]) Patient denied known discharge needs at this time. CM will continue to follow and will assist as needed with dc plans/needs. Enamel Machine Operator: Audelia Camilo DCPIA - Discharge Planning Initial Assessment Updated by [id number]: Audelia Camilo on 02/20/19 6:55 pm * Is the patient Alert and Oriented? Yes * How many steps to enter\exit or inside your home? 3-4 * PCP [facility]ACE * Pharmacy [facility] * Preadmission Environment Home with Family * ADLs Independent * Other Equipment CANE, WALKER, W/C, HOME 02 ([facility]) * List name and contact numbers for known caregivers / representatives who currently or will assist patient after discharge: MARYLU CHOW - SPOUSE - [phone], [phone] * Verbal permission to speak to the caregivers and representatives has been obtained from the patient. Yes * Community resources currently utilized None * Additional services required to return to the preadmission environment? No * Can the patient safely return to the preadmission environment? Yes * Has this patient been hospitalized within the prior 30 days at any hospital? Yes Coverage Notice Reviewer: [id number] - Audelia Camilo Notice Issued Date-Time: 02/21/2019 10:55 Notice Type: IM Discharge Notice Notice Delivered To: Patient Relationship to Patient: Self Nurse Assistant Name: Delivery Method: HAND - Hand Delivered Marybeth Days: Prior Verbal Notification: Recipient Understood Notice: Yes Recipient Signature: Yes Med Rec Note Co-signed by Attending: Coverage Notice Comment: Last DP export: 02/20/19 6:06 p Patient Name: HUMBERTO CHOW Page 80515 at 1645 All edits/amendments must be made on the electronic document DICTATION DATE: 02/21/191644 POST GRADUATE INTERN: RODRIGO 02/21/191644 RPT#: [id number] DC DATE:02/21/19 STATUS: DIS IN [facility] [address] [facility] [place] [address] END OF REPORT
--- NOTE | 2019-02-21 16:51 | EC ---
PATIENT:HUMBERTO CHOW DATE OF SERVICE: 02/19/19 SEX: F MEDICAL RECORD: [id number] DATE OF : [birth year] LOCATION:[place] [address] AGE OF PATIENT: 73 ADMISSION DATE: 02/19/19 REFERRING PHYSICIAN: INTERPRETING PHYSICIAN: FERMIN MEDEROS MD ECHOCARDIOGRAM REPORT ECHO CHARGES 4 ECHO COMPLETE Date: 02/19/19 CLINICAL DIAGNOSIS: PVC ECHOCARDIOGRAPHIC MEASUREMENTS (adult normal given) AC root (d.<3.7cm) 2.6 cm LV Septum d (<1.2 cm> 0.9 cm Valve Excursion 1.3 cm LV Septum (systole) 1.2 cm Left Atria (s.<4.0cm> 3.8 cm LVPW d(<1.2cm) 0.7 cm RV (d.<2.3cm) 1.8 cm LVPW (sytole) 1.1 cm LV diastole(<5.6CM) 4.6 cm MV E-F(>70mm/sec) cm LV systole 3.5 cm LVOT Diameter 1.6 cm MV exc.(>10mm) cm Est.ejection fraction (50-75%) % DOPPLER: LVIT cm/sec A 135 cm/sec E 76 cm/sec LA cm/sec RVSP 21.4 mmHg LVOT 121 cm/sec AOP1/2T m/s Asc. Ao 160 cm/sec RVOT 72 cm/sec RA cm/sec PA 99 cm/sec AV Gradient Peak 10.3 mmHg AV Mean 5.9 mmHg AV Area 2.1 cm MV Gradient Peak 9.7 mmHg MV Mean 4.8 mmHg MV Area cm COMMENTS: Mandarin Teacher: Ky YUBARRINGTON ANDREW Bridge Design Engineer: 1 Dr. Mederos TAPE# PACS Pericardial Effusion N DATE OF SERVICE: FINDINGS: 1. Left ventricular chamber size is within normal limits. Left ventricular systolic function is mildly depressed at 40%. 2. Left atrium, right atrium, and right ventricular chamber sizes are within normal limits. 3. Valvular structures have normal structure and motion. 4. Doppler interrogation reveals trace mitral regurgitation, no other valvular insufficiency or stenosis. ECHOCARDIOGRAM REPORT [id number] HUMBERTO CHOW 5. No evidence of pericardial effusion or left ventricular thrombus. TRANSINT:[id number] Voice Confirmation ID: [id number] DOCUMENT ID: [id number] FERMIN MEDEROS MD at 1651 CC: [id number] DICTATION DATE: 02/19/19 1639 FIRST FRONT VENTILATOR: 02/19/19 1856 DIS IN 02/21/19 [place] [id number] [place] [id number]
--- NOTE | 2019-02-21 16:51 | CN ---
PATIENT NAME:HUMBERTO ADAMS MEDICAL RECORD: [id number] : [birth year] LOCATION:D.BELLID.CV03 ADMIT DATE: 02/19/19 ACCOUNT: [id number] CONSULTING PHYSICIAN: FERMIN EDWARDS MD REFERRING PHYSICIAN: MARIBELL SELLERS MD DATE OF CONSULTATION: 02/19/2019 DIAGNOSES: 1. Premature ventricular contractions. 2. Dysrhythmia - premature atrial contractions. 3. Abnormal ECG. 4. Carotid vascular disease. 5. Status post carotid endarterectomy. 6. Hypertension. 7. Hyperlipidemia. 8. Chronic obstructive pulmonary disease. 9. Smoking history. HISTORY OF PRESENT ILLNESS: Mrs. Adams has not had a cardiac history. She has had history of peripheral vascular disease, today underwent carotid endarterectomy. She had PVCs, PACs and ST-T changes during the surgery. She has not had a workup from the standpoint of ischemic heart disease despite the multiple risk factors. She has been overall asymptomatic. She denies any chest discomfort at this time. PHYSICAL EXAMINATION: GENERAL APPEARANCE: Well-nourished, well-developed, appears stated age. Level of distress, comfortable. PSYCHIATRIC: Mental status, alert, normal affect. Orientation, oriented to time, place and person. EYES: Lids and conjunctiva, noninjected. No discharge, no pallor. ENT: Lips, teeth, gums, normal dentition. Oropharynx, no cyanosis, no pallor. NECK: Carotid arteries, bilateral normal upstroke, no bruits, no thrills. JUGULAR VEINS: No jugular venous pressure or distention. CERVICAL LYMPH NODES: Nontender, nonenlarged. THYROID: Not enlarged. Nontender. No nodules. LUNGS: Respiratory effort, unlabored. CHEST: Normal curvature. No thoracic deformity. No chest wall tenderness. Percussion, resonant. Auscultation, clear. No wheezes, no rales, no rhonchi. CARDIOVASCULAR: Precordial exam, nondisplaced. No heaves or pericardial thrills. Rate and rhythm, regular. Heart sounds, normal S1, normal S2. No S3, no gallop, no rub. Systolic murmur, not heard. Diastolic murmur, not heard. EXTREMITIES: No cyanosis, no edema. Peripheral pulses, full and equal in all extremities, except as noted. No bruits appreciated. ABDOMEN: Soft, nondistended. Normal aorta. No bruit. Nontender. No masses. Liver, nontender, no hepatomegaly. Spleen, nontender, no splenomegaly. MUSCULOSKELETAL: No joint tenderness. No joint swelling. No erythema. NEUROLOGICAL: Normal gait, normal strength, normal tone. SKIN: Warm and dry. OVERALL IMPRESSION: There is high likelihood that she does have hemodynamically significant coronary artery disease with peripheral vascular disease and carotid vascular disease. We will start with an echocardiogram. At this time, most likely we will be able to risk stratify with stress testing Cardiolite imaging as an outpatient after the surgery. CONSULT REPORT [id number] HUMBERTO ADAMS TRANSINT:[id number] Voice Confirmation ID: [id number] DOCUMENT ID: [id number] FERMIN EDWARDS MD at 1651 CC: [id number] DICTATION DATE: 02/19/19 1258 RENEWALS SPECIALIST: 02/19/19 1413 DIS IN 02/21/19 [place] [id number] [place] [address]
--- NOTE | 2019-02-21 16:54 | MORECARE ---
CASE MANAGEMENT DISCHARGE SUMMARY PATIENT: HUMBERTO CHOW UNIT: [id number] ADM DATE: 02/19/19 AGE: 73 : [birth year] SEX: F ROOM/BED: D.03 AUTHOR: CHARLIE,DOC PHYSICIAN: REFERRING PHYSICIAN: MARIBELL SELLERS MD DATE OF SERVICE: 02/21/19 Discharge Plan Patient Name: HUMBERTO CHOW Facility: [facility]:[place] : 1945 Planned Disposition: Home Anticipated Discharge Date: Discharge Date: 02/21/2019 Expected LOS: Initial Reviewer: [email or web address] Initial Review Date: 02/20/2019 Generated: 02/21/19 5:53 pm Comments DCP- Discharge Planning Updated by [email or web address]: Audelia Camilo on 02/21/19 3:[address] Patient Name: HUMBERTO CHOW Encounter No: [id number] : 1945 Primary Insurance: MEDICARE A & B Anticipated DC Date: Planned Disposition: Home External Planned Provider: : D/C IMM EXPLAINED AND SIGNED 02/21/19 @ 1055 DCP follow-up note: Patient and family in agreement with discharge plan. No changes to plan. Case management will follow and assist as needed. Audelia Camilo DCP- Discharge Planning Updated by [email or web address]: Audelia Camilo on 02/20/19 5:[address] Patient Name: HUMBERTO CHOW Admission Status: Elective Accout number: [id number] Admission Date: 02-19-2019 : 1945 Admission Diagnosis: Attending: MARIBELL SELLERS Current LOS: 1 Anticipated DC Date: Planned Disposition: Home Primary Insurance: MEDICARE A & B Discharge Planning Comments: CM met with patient to complete initial dc planning assessment. CM educated patient on the CM role and verbal consent given by patient to complete assessment. Patient lives at home with her where she is independent with her care. At discharge patient plans to return home and feels this is a safe discharge. CM discussed availability of home health, rehab services, and medical equipment. Her will drive her home. Patient has home o2 @ [facility] ( [facility]) Patient denied known discharge needs at this time. CM will continue to follow and will assist as needed with dc plans/needs. Load Haul Dump Operator: Audelia Camilo DCPIA - Discharge Planning Initial Assessment Updated by [email or web address]: Audelia Camilo on 02/20/19 6:55 pm * Is the patient Alert and Oriented? Yes * How many steps to enter\exit or inside your home? 3-4 * PCP [facility]ACE * Pharmacy [facility] * Preadmission Environment Home with Family * ADLs Independent * Other Equipment CANE, WALKER, W/C, HOME 02 ([facility]) * List name and contact numbers for known caregivers / representatives who currently or will assist patient after discharge: MARYLU CHOW - SPOUSE - [phone], [phone] * Verbal permission to speak to the caregivers and representatives has been obtained from the patient. Yes * Community resources currently utilized None * Additional services required to return to the preadmission environment? No * Can the patient safely return to the preadmission environment? Yes * Has this patient been hospitalized within the prior 30 days at any hospital? Yes Coverage Notice Reviewer: [email or web address] - Audelia Camilo Notice Issued Date-Time: 02/21/2019 10:55 Notice Type: IM Discharge Notice Notice Delivered To: Patient Relationship to Patient: Self Cassandra Architect Name: Delivery Method: HAND - Hand Delivered Marybeth Days: Prior Verbal Notification: Recipient Understood Notice: Yes Recipient Signature: Yes Med Rec Note Co-signed by Attending: Coverage Notice Comment: Last DP export: 02/21/19 3:45 p Patient Name: HUMBERTO CHOW Page 86602 at 1654 All edits/amendments must be made on the electronic document DICTATION DATE: 02/21/191652 PEDIATRIC DERMATOLOGIST: RODRIGO 02/21/191652 RPT#: [id number] DC DATE:02/21/19 STATUS: DIS IN [facility] [address] [place] [address] END OF REPORT
--- NOTE | 2019-02-25 09:47 | OP ---
PATIENT NAME: HUMBERTO CHOW MEDICAL RECORD: [id number] :[birth year] LOCATION:[facility] D.CV03 ADMISSION DATE:02/19/19 SURGEON: MARIBELL SELLERS MD DATE OF OPERATION: 02/19/2019 SURGEON: Maribell Sellers MD ANESTHESIA: General, Dr. Levi. OPERATION PERFORMED: Right carotid endarterectomy with patch angioplasty. PREOPERATIVE DIAGNOSIS: Severe right internal carotid artery stenosis. POSTOPERATIVE DIAGNOSIS: Severe right internal carotid artery stenosis. INDICATION FOR OPERATION: Severe right internal carotid artery stenosis. FINDINGS AT OPERATION: Severe right internal carotid artery stenosis. There were no EEG changes with clamping or unclamping of the carotid arteries. ESTIMATED BLOOD LOSS: Less than 100 cc. DESCRIPTION OF PROCEDURE: After informed consent, adequate preoperative medication and evaluation, the patient was brought to the operating room, placed on the table in the supine position. After induction of general endotracheal anesthesia and application of appropriate monitoring devices, the right neck was prepped and draped in sterile field, utilizing Betadine scrub, alcohol, and Betadine solution. Betadine-impregnated drape was also used. An oblique incision was made in the skin crease. Dissection was carried down the fascia. Hemostasis was maintained with electrocautery. Facial vein was identified and divided utilizing sharp dissection. The common carotid, internal and external carotid arteries were dissected free from surrounding structures, protecting the neurological structures. The patient was given a calculated dose of heparin after 3 minutes, clamps were applied after 2 minutes and no EEG change. The arteriotomy was made and extended with Mai scissors. Artery underwent endarterectomy sharply. Artery underwent extensive debridement and irrigation. Utilizing a vascular patch from [employer] and a running 6-0 Prolene suture, the arteriotomy was closed with patch angioplasty technique. All maneuvers to remove trapped air were performed. The clamps were removed sequentially. There were no EEG changes. The patient was given a calculated dose of protamine to reverse the heparin. Hemostasis was achieved. A #7 Meño-Landrum drain was left in depths of wound and brought out through the base of the neck. Neck was again irrigated. Instrument count and sponge count were correct times 2. Neck was closed in layers utilizing 3-0 Vicryl on the platysma, 5-0 subcuticular Monocryl on the skin. Sterile dressings were applied. The patient tolerated the procedure well and transferred to CV ICU in satisfactory condition. TRANSINT:[id number] Voice Confirmation ID: [id number] DOCUMENT ID: [id number] OPERATIVE REPORT [id number] HUMBERTO CHOW EDWARD MD at 0947 CC: [id number] DICTATION DATE: 02/19/19 1105 DYE CAN OPERATOR: 02/19/19 1152 DIS IN 02/21/19 [place] [id number] [place] [id number]
== END 2019-02-21 12:30 | disposition home or self-care (01) | DRG 39 ==
LOC: D.SDCHOLD 08:35 → D.CVICU 02-19 05:45 → D.SDCHOLD 02-19 07:30 → D.CVICU 02-19 10:59
PROVIDERS: ADMIT Internal Medicine Cardiovascular Disease; ATTEND Internal Medicine Cardiovascular Disease
PROC: 03UK0JZ Supplement Right Internal Carotid Artery with Synthetic Substitute, Open Approach (ICD-10-PCS; 2019-02-19)
PROC: 03CK0ZZ Extirpation of Matter from Right Internal Carotid Artery, Open Approach (ICD-10-PCS; principal; 2019-02-19 07:30)
DX: I65.21 Occlusion and stenosis of right carotid artery (principal); I49.3 Ventricular premature depolarization; I25.10 Atherosclerotic heart disease of native coronary artery without angina pectoris; I10 Essential (primary) hypertension; E78.5 Hyperlipidemia, unspecified; J44.9 Chronic obstructive pulmonary disease, unspecified; Z87.891 Personal history of nicotine dependence

== ENCOUNTER → 2019-03-17 11:48 | Outpatient (CLI) | payer MEDICARE, BC ==
[2019-02-19 11:44] VITALS: BMI 26.3
[~2019-03-17 11:48] MED LIST changes: +ALBUTEROL SULF8.5 GM INH; +IPRAT-ALBUT 0.5-3 ML UPD; +ISOSORBIDE MONO30 M1 PO; +OS-CAL500 MG PO; +POTASSIUM99 M1 PO; +ULTRAM50 MG PO; +[UNRECOGNIZED DRUG - REMARK] INH
== END | disposition home or self-care (01) ==
LOC: D.HCCARDIO 11:48
PROVIDERS: ATTEND Internal Medicine Cardiovascular Disease
DX: I25.10 Atherosclerotic heart disease of native coronary artery without angina pectoris (principal)

== ENCOUNTER → 2019-03-27 10:32 | Outpatient (CLI) | payer MEDICARE, BC ==
[2019-02-19 11:44] VITALS: BMI 26.3
== END | disposition home or self-care (01) ==
LOC: D.RT 10:32
PROVIDERS: ATTEND Internal Medicine Pulmonary Disease
DX: J44.9 Chronic obstructive pulmonary disease, unspecified (principal)

== ENCOUNTER 2019-04-03 06:30 | Outpatient (CLI) | payer MEDICARE, BC ==
[~2019-04-03] VITALS: Ht 170.2 cm; Wt 76.4 kg
--- NOTE | ~2019-04-03 | HEMODYNAMI ---
PATIENT:HUMBERTO CHOW MEDICAL RECORD: [id number] : 47 LOCATION:D.CAT ADMISSION DATE: 04/03/19 Generatedon:04/03/20198:43 Patient name: HUMBERTO CHOW Patient #: [id number] SSN: [id number] : 1945 Date of study: 04/03/2019 Page: Of Hemodynamic Procedure Report Patient Data Patient Demographics Procedure consent was obtained First Name: HUMBERTO Gender: Female Last Name: CLAUDINE : 1945 Middle Initial: LIZBETH Age: 73 year(s) Patient #: [id number] Race: SSN: [id number] Additional ID: [id number] Contact details Address: [address] [place] [address] [facility] State: [place] City: [place] Zip code: [address] Past Medical History Allergies Allergen Reaction Date Comments Reported Other allergy 04/03/2019 ASA, mushroom, shellfish, contrast. Admission Admission Data Admission Date: 04/03/2019 Admission Time: 6:30 Insurance Payor: Medicare [facility] #: [id number] Height (in.): 67 BSA: 1.87 (m2) Height (cm.): 170.18 BMI: 26.16 (kg/m2) Weight (lbs.): 167 Weight (kg.): 75.75 Lab Results Lab Result Date: 04/03/2019 Lab Result Time: 7:15 Biochemistry Name Units Result Min Max BUN mg/dl 31 --(----)-* 7 18 Creatinine mg/dl 1.2 --(---*)-- 0.6 1.3 CBC Name Units Result Min Max Hematocrit % 43.8 --(*---)-- 42 54 Hemoglobin g/dl 15.2 --(-*--)-- 13.5 17.5 Procedure Procedure Types Cath Procedure Diagnostic Procedure LHC [facility] w/Coronaries Sedation Charges Moderate Sedation up to 15 minutes Peripheral Cath Diagnostic Procedure Abd/Extremity Aortagram Extremities Right Lower Ext Arterio Procedure Description Procedure Date Procedure Date: 04/03/2019 Procedure Start Time: 8:18 Procedure End Time: 8:42 Procedure Staff Name Function Jamie Abdi MD Performing Physician Romeo Price RN Nurse Wilfred Carrillo RT Monitor Tye Kauffman RT Scrub Procedure Data Cath Procedure Fluoroscopy Diagnostic fluoroscopy Total fluoroscopy Time: 2.9 time: 2.9 min min Diagnostic fluoroscopy Total fluoroscopy dose: 638 dose: 638 mGy mGy Contrast Material Contrast Material Type Amount (ml) Isovue 300 120 Entry Location Entry Primary Successful Side Size Upsize Upsize Entry Closure Succes sful Closure Location (Fr) 1 (Fr) 2 (Fr) Remarks Device Remarks Femoral Left 5 Fr Exoseal artery Estimated blood loss: 5 ml Diagnostic catheters Device Type Used For End Catheter Placement MULTIPACK JL 4.0 5Fr Procedure catheter MULTIPACK 3DRC 5Fr Procedure catheter MULTIPACK Pigtail 5 Fr Procedure catheter Procedure Complications No complications Procedure Medications Medication Administration Route Dosage Oxygen etCO2 Nasal cannula 2 l/min Lidocaine 2% added to field 20 Heparin Flush Bag added to field 2 bags (1000units/500ml NS) 0.9% NaCl I.V. 100 ml/hr Versed I.V. 1 mg Fentanyl I.V. 50 mcg Fentanyl I.V. 50 mcg Versed I.V. 1 mg Fentanyl I.V. 50 mcg Hemodynamics Rest BSA: 1.87 (m2) O2 Consumption: Estimated: 173.68 (ml/min) O2 Consumption indexed : Estimated:92.88 (ml/min/m) Heart Rate: 73 (bpm) Pressure Samples Time Site Value (mmHg) Purpose Heart Use Rate(bpm) 8:32 LV 212/22,30 Snapshot 81 8:33 AO 211/98(147) Pullback 83 8:33 LV 204/22,30 Pullback 83 Gradients Valve Time Site 1 Site 2 Mean SEP/DFP Peak To Heart Use (mmHg) (sec/min) Peak Rate (mmHg) (bpm) Aortic 8:33 LV AO 0 7 0 83 204/22,30 211/98(147) Calculations Valve P-P Mean Valve Index Valve Source Name Gradient Area Flow (cm2) Aortic 0 0 0 0 Snapshots Pre Cath Intra NCS Post Cath Vital Signs Time Heart Resp SPO2 etCO2 NIBP (mmHg) Rhythm Pain Sedation Rate (ipm) (%) (mmHg) Status Level (bpm) 8:11:59 69 17 96 36.8 172/86(103) NSR 0 (11) 10(A) , No pain 8:15:58 68 11 96 28.6 175/80(136) NSR 0 (11) 10(A) , No pain 8:21:16 73 14 97 33.9 175/92(137) NSR 0 (11) 10(A) , No pain 8:26:39 72 14 92 35.4 176/86(123) NSR 0 (11) 9(A) , No pain 8:31:16 79 13 94 26.3 190/90(145) NSR 0 (11) 9(A) , No pain 8:35:20 77 15 95 19.5 182/87(136) NSR 0 (11) 10(A) , No pain 8:40:19 75 12 97 36.9 Measuring NSR 0 (11) 10(A) , No pain 8:41:08 76 9 97 40.7 198/102(134) NSR 0 (11) 10(A) , No pain Medications Time Medication Route Dose Verified Delivered Reason Notes Effe ctiveness by by 8:11:06 Oxygen etCO2 2 Jamie Buffie used for Nasal l/min Jin Price RN procedure cannula 8:11:13 Lidocaine 2% added 20ml Jamie Jamie for local to vial Jin Abdi MD anesthetic field 8:11:19 Heparin Flush added 2 Jamie Jamie used for Bag to bags Jin Abdi MD procedure (1000units/500ml field NS) 8:11:27 0.9% NaCl I.V. 100 Jamie Buffie Per ml/hr Jin Price RN physician 8:18:13 Versed I.V. 1 mg Jamie Buffie for Jin Price RN sedation 8:18:19 Fentanyl I.V. 50 Jamie Buffie for mcg Jin Price RN sedation 8:20:39 Fentanyl I.V. 50 Jamie Buffie for mcg Jin Price RN sedation 8:24:34 Versed I.V. 1 mg Jamie Buffie for Jin Price RN sedation 8:24:38 Fentanyl I.V. 50 Jamie Buffie for mcg Jin Price RN sedation Procedure Log Time Note 7:35:06 Signed procedure consent form obtained from patient. 7:35:35 Procedure Status Elective Heart Cath (OP). 7:35:37 Time tracking: Regular hours (M-F 7:00 - 5:00) 7:35:40 Plan of Care:Hemodynamics will remain stable., Cardiac rhythm will remain stable., Comfort level will be maintained., Respiratory function will remain adequate., Patient/ family verbilizes understanding of procedure., Procedure tolerated without complication., Recovers from procedure without complications.. 7:38:33 Romeo Price RN sent for patient. Start room use. 7:43:54 Insurance Payor : Medicare 7:44:56 Patient Weight : 167 lbs 7:44:58 Patient Height : 67 inches 7:56:02 Patient received from Pre/Post Procedure Room to CCL 2 Alert and oriented. Tansferred to table in Supine position. 7:56:09 Warm blankets applied, and tereza hugger turned on for patient comfort. 7:56:10 Correct patient and procedure confirmed by team. 7:56:11 ECG and BP/O2 sat monitors applied to patient. 7:56:14 Pre-procedure instructions explained to patient. 7:56:15 Pre-op teaching completed and patient verbalized understanding. 7:56:32 H&P Date Dictated: 03/11/2019 Within 30 days and on chart., H&P Addendum completed by physician on day of procedure. (MUST COMPLETE FOR ALL OUTPATIENTS). 7:57:58 Lab Result : BUN 31 mg/dl 7:57:58 Lab Result : Hematocrit 43.8 % 7:57:58 Lab Result : Hemoglobin 15.2 g/dl 7:57:58 Lab Result : Creatinine 1.2 mg/dl 8:10:42 Vital chart was started 8:11:06 Oxygen 2 l/min etCO2 Nasal cannula was administered by Romeo Price RN; used for procedure; 8:11:13 Lidocaine 2% 20ml vial added to field was administered by Jamie Abdi MD; for local anesthetic; 8:11:19 Heparin Flush Bag (1000units/500ml NS) 2 bags added to field was administered by Jamie Abdi MD; used for procedure; 8:11:27 0.9% NaCl 100 ml/hr I.V. was administered by Romeo Price RN; Per physician; 8:15:06 Baseline sample Acquired. 8:16:05 Rhythm: sinus rhythm 8:16:06 Full Disclosure recording started 8:16:08 Family in waiting room. 8:16:10 Patient NPO since Midnight. 8:16:27 Patient allergic to Other allergyASA, mushroom, shellfish, contrast. 8:16:29 Is the patient allergic to Iodine/contrast media? Yes. 8:16:30 Was the patient premedicated? Yes 8:16:30 Is patient on blood thinner?Yes 8:16:33 ACC The patient was administered the following blood thiners within the last 24 hours: ACCAspirin, ACCPlavix 8:16:37 ACC Patient presents with Stable Angina CCS Anginal Class 3--Marked limitation of physical activity, angina occurs with ordinary activity.. 8:16:53 ACCPatient has been prescribed/administered the following anti-anginal medication within the last 2 weeks: None 8:16:56 Patient diabetic? No. 8:16:58 Previous problem with sedation/anesthesia? No ? 8:16:59 Snore? Yes 8:17:00 Sleep apnea? No 8:17:01 Deviated septum? No 8:17:05 Opens mouth fully? Yes 8:17:06 Sticks out tongue? Yes 8:17:10 Dentures? No ? 8:17:11 Airway obstruction? No ? 8:17:14 Pre procedure: left dorsailis pedis pulse 2+ Normal; easily identifiable; not easily obliterated 8:17:17 Patient pain scale 0/10 ?. 8:17:21 IV patent on arrival in left wrist with 0.9% NaCl at [facility]. 8:17:23 Lab results completed and on chart. 8:17:25 Left groin area was prepped with chlora-prep and draped in sterile fashion 8:17:26 Alarms reviewed by R. N. 8:17:26 Sharps counted by scrub and verified by R.N. 8:17:28 Use device set Femoral Dx 8:17:28 ACIST Syringe (67828) opened to sterile field. 8:17:29 Bag Decanter (2002) opened to sterile field. 8:17:29 Medline Cath Pack ([id number]) opened to sterile field. 8:17:30 ACIST Hand Control (64149) opened to sterile field. 8:17:31 ACIST Manifold (48850) opened to sterile field. 8:17:31 Tegaderm 4 x 4 (1626W) opened to sterile field. 8:17:32 DIAGNOSTIC Multipack 5Fr catheter set ([id number]) opened to sterile field. 8:17:33 EMERALD Guide Wire (373-963) opened to sterile field. 8:17:34 SHEATH 5FR Stout (IAF771) opened to sterile field. 8:17:40 Physician arrived 8:17:40 --------ALL STOP TIME OUT------ 8:17:41 Final Timeout: patient, procedure, and site verified with staff and physician. All members of the team are in agreement. 8:17:42 Left groin site verified by team. 8:17:46 Fire Safety Assessment: A--An alcohol-based skin anteseptic being used preoperatively., C--Open oxygen or nitrous oxide is being used., D--An ESU, laser, or fiber-optic light is being used. 8:17:48 Physical assessment completed. ASA score P 2 - A patient with mild systemic disease as per Jamie Abdi MD. 8:18:00 3a) 45-59 Moderately reduced kidney function. 8:18:13 Versed 1 mg I.V. was administered by Romeo Price RN; for sedation; 8:18:13 Maximum allowable contrast dose (3.7 X eGFR X 0.75)130 ml. 8:18:16 Sedation plan: IV Moderate Sedation Medication:Versed, Fentanyl 8:18:19 Fentanyl 50 mcg I.V. was administered by Romeo Price RN; for sedation; 8:18:19 Procedure started. 8:18:23 Local anesthetic to left femerol artery with Lidocaine 2% by Jamie Abdi MD.INITIAL ACCESS ONLY 8:18:31 A 5 Fr sheath was inserted into the Left Femoral artery 8:18:51 Zero performed for pressure channel P1 8:20:39 Fentanyl 50 mcg I.V. was administered by Romeo Price RN; for sedation; 8:24:34 Versed 1 mg I.V. was administered by Romeo Price RN; for sedation; 8:24:38 Fentanyl 50 mcg I.V. was administered by Romeo Price RN; for sedation; 8:25:16 A MULTIPACK JL 4.0 5Fr catheter was advanced over the wire and used for Procedure. 8:25:50 LCA angiography performed. 8:26:56 Catheter exchanged over wire. 8:27:00 A MULTIPACK 3DRC 5Fr catheter was advanced over the wire and used for Procedure. 8:30:37 RCA angiography performed. 8:31:03 Catheter exchanged over wire. 8:31:07 A MULTIPACK Pigtail 5 Fr catheter was advanced over the wire and used for Procedure. 8:32:39 LV gram done using FARRAR 8:32:42 Injector settings: Ml/sec: 10, Volume: 20, 8:32:44 LV hemodynamics recorded. 8:32:55 EF : 40 % 8:34:12 Abdominal angiogram w/ runoff was performed. 8:35:14 Right leg runoff performed. 8:38:50 Catheter removed. 8:38:51 EXOSEAL 5Fr (EX500) opened to sterile field. 8:39:01 Sheath removed intact; hemostasis achieved with Exoseal to the Left Femoral artery. 8:39:03 Procedure ended.(Physican Out) 8:39:41 Fluoroscopy time 02.90 minutes. 8:39:47 Fluoroscopy dose: 638 mGy 8:39:47 Flurop Dose total: 638 8:39:53 Dose Area Product 29468 mGy/cm. 8:39:56 Contrast amount:Isovue 300 120ml. 8:39:58 Maximum allowable dose exceeded? No. 8:39:59 Sharps counted by scrub and verified by R.N. 8:40:12 Insertion/operative site no bleeding no hematoma. 8:40:15 Post-op/insertion site Left Femoral artery dressed using a 4 x 4 and Tegaderm. 8:40:21 Post right femoral artery:stable, soft, clean and dry 8:40:23 Post Procedure Pulses reassessed and unchanged 8:40:25 Post-procedure physical assessment completed. ASA score P 2 - A patient with mild systemic disease as per Jamie Abdi MD. 8:40:27 Post procedure rhythm: unchanged. 8:40:29 Estimated blood loss: 5 ml 8:40:30 Post procedure instruction explained to patient.Patient verbalizes understanding. 8:40:30 Patient needs reinforcement of post procedure teaching. 8:42:01 Procedure type changed to Cath procedure, Diagnostic procedure, LHC, LHC w/Coronaries, Sedation Charges, Moderate Sedation up to 15 minutes, Peripheral Cath Diagnostic Procedure, Abd/Extremity, Aortagram, Extremities, Right Lower Ext Arterio 8:42:21 Procedure and supply charges have been captured, reviewed, submitted and are correct. 8:42:23 Procedure Complication : No complications 8:42:25 Vital chart was stopped 8:42:42 See physician's report for complete and final results. 8:42:45 Report given to Pre/Post Procedure Room. 8:42:46 Patient transfered to Pre/Post Procedure Room with Stretcher. 8:42:48 Procedure ended. 8:42:48 Full Disclosure recording stopped 8:42:53 ACC-PCI Only Patient was given prescriptions, or instructed by Jamie Abdi MD to start/continue the following medications upon discharge: Aspirin, Plavix 8:42:54 End room use (Document Last) Device Usage Item Name Manufacture Quantity Catalog Hospital Part Current Minimal L ot# / Number Charge Number Stock Stock Serial# Code ACIST Acist 1 [id number] 245214 [id number] 20 Syringe Medical (27402) Systems Inc Bag Microtek 1 2001S 005526 98201 549761 5 Decanter Medical Inc. (2001S) Medline Medline 1 [id number] 262151 37175 818766 5 Cath Pack ([id number]) ACIST Hand Acist 1 73025 842444 977900 541726 5 Control Medical (17615) Systems Inc ACIST Acist 1 87839 818884 451504 939652 5 Manifold Medical (13822) Systems Inc Tegaderm 4 3M 1 1626W 292172 081879 257154 5 x 4 (1626W) DIAGNOSTIC Cardinal 1 NO1086 776559 15184 761291 30 Multipack Health 5Fr catheter set (DO8709) EMERALD Cardinal 1 502-455 900509 472442 323492 5 Guide Wire Health (502-455) SHEATH 5FR Terumo 1 XFC437 774750 749193 830967 5 Stout (STJ284) MULTIPACK Cardinal 1 846469 5 JL 4.0 5Fr Health catheter MULTIPACK Cardinal 1 217790 5 3DRC 5Fr Health catheter MULTIPACK Cardinal 1 580409 5 Pigtail 5 Health Fr catheter EXOSEAL 5Fr Cardinal 1 EX500 355940 896512 057364 10 (EX500) Health Signature Audit [facility] Stage Time Signature Unsigned Intra-Procedure 04/03/2019 Wilfred Carrillo 8:43:22 AM RT(R) Signatures Performing Physician : Signature : Jamie Abdi MD Date : Time : Nurse : Romeo Price RN Signature : Date : Time : Monitor : Wilfred Carrillo RT Signature : Date : Time : [address] [place] [address]
[~2019-04-03 06:30] MED LIST changes: -ISOSORBIDE MONO30 M1 PO; -POTASSIUM99 M1 PO
[2019-04-03] MEDS ORDERED: POTASSIUM99 M1 PO (06:54)
[2019-04-03 07:12] VITALS: BP 120/63; Ht 170.2 cm; Wt 76.4 kg
[2019-04-03 07:52] LABS: BASOPHILS 0.2 % (0-2); EOSINOPHILS 0 % (0-7); HEMATOCRIT 43.8 % (36.0-48.0); HEMOGLOBIN 15.2 g/dL (12-16); IMMATURE GRANULOCYTES 0.2 % (0-5); LYMPHOCYTES 17.9 % (15-50); MCH 33.6 pg (26.0-34.0); MCHC 34.7 g/dL (31.0-37.0); MCV 96.9 fL (80.0-100.0); MEAN PLATELET VOLUME 12.1 fL (7.4-10.4); MONOCYTES 2.8 % (2-11); NEUTROPHILS 78.9 % (40-80); PLATELET COUNT 179 10x3/uL (130-400); RBC 4.52 10x6/uL (4.00-5.40); RDW 14.3 % (11.5-14.5); WBC 6.2 10x3/uL (4.8-10.8)
[2019-04-03 07:55] LABS: ANION GAP 13.6 mmol/L (8-16); CALCIUM 9.9 mg/dL (8.5-10.1); CREATININE - SERUM 1.2 mg/dL (0.6-1.3); POTASSIUM - SERUM 3.6 mmol/L (3.5-5.1)
[2019-04-03 08:07] LABS: CHOL - HDL RATIO 2.7 ratio (2.3-4.1); LDL-HDL RATIO 1.6 ratio (1.5-3.5)
--- NOTE | 2019-04-03 09:10 | NUR ---
RECEIVED PT FROM LABOR CUSTODIAN, PT IS ALERT, DENIES ANY C/O PAIN OR NAUSEA. 5 FR EXOSEAL IS CDI TO LEFT GROIN, AREA IS SOFT AND NONTENDER. PEDAL PULSES PALPABLE. HOB IS FLAT, BED LOCKED AND LOW, SIDE RAILS UP X2. PT REQUESTS WATER AND THIS SERVED. VSS. DR COSTELLO HAS ROUNDED AND SPOKEN WITH PT AND . CALL LIGHT IN REACH.
--- NOTE | 2019-04-03 09:14 | NUR ---
DRESSING CDI, PEDAL PULSES PALPABLE. VSS. RESP WITH EASE. PT IS ALERT AND DENIES ANY C/O. HOB IS FLAT.
[2019-04-03] MEDS ORDERED: ISOSORBIDE MONO30 M1 PO (09:22)
--- NOTE | 2019-04-03 09:33 | NUR ---
PT ALERT, VISITING WITH IN THE ROOM.. HOB IS FLAT, VSS, DRESSING CDI, PEDAL PULSES PALPABLE. PT DENIES ANY C/O OR NEEDS AT THIS TIME, HITESH PO FLUIDS WITH NO NAUSEA.
--- NOTE | 2019-04-03 10:01 | NUR ---
PT IS ALERT, DENIES ANY C/O. DRESSING IS CDI LEFT GROIN, AREA IS SOFT AND NONTENDER. PEDAL PULSES PALPABLE. VSS. CALL LIGHT IN REACH, HOB IS FLAT.
--- NOTE | 2019-04-03 11:07 | NUR ---
1030 HOB ELEVATED 30 DEGREES, SANDWICH AND PO FLUIDS SERVED. DRESSING CDI, PEDAL PULSES PALPABLE. PT IS ALERT AND DENIES ANY CO AT THIS TIME. 1055 HOB FULLY ELEVATED, DRESSING IS CDI, PEDAL PULSES PALPABLE.
--- NOTE | 2019-04-03 12:11 | NUR ---
1125 PT IS ALERT AND DENIES ANY C/O. DC INSTRUCTIONS REVIEWED WITH PT WHO VERBALIZES UNDERSTANDING. IV DC'D WITH CATH INTACT AND PT IS DRESSING FOR DC TO HOME. 1140 PT HAS BEEN ESCORTED TO THE BATHROOM AND VOIDED QS. DENIES ANY C/O. PT ESCORTED TO PRIVATE AUTO VIA WC BY NURSE WITH DRIVING HER HOME. PT HAS ALL PERSONAL BELONGINGS AND DC INSTRUCTIONS AT TIME OF DISCHARGE.
== END 2019-04-03 11:40 | disposition home or self-care (01) ==
LOC: D.CATH 06:30
PROVIDERS: ATTEND Internal Medicine Cardiovascular Disease
DX: I25.119 Atherosclerotic heart disease of native coronary artery with unspecified angina pectoris (principal); I70.211 Atherosclerosis of native arteries of extremities with intermittent claudication, right leg; Z01.812 Encounter for preprocedural laboratory examination

== ENCOUNTER → 2019-06-30 18:51 | Outpatient (CLI) | payer MEDICARE, BC ==
[2019-04-03 07:12] VITALS: BMI 26.3
[~2019-06-30 18:51] MED LIST changes: +ISOSORBIDE MONO30 M1 PO; +POTASSIUM99 M1 PO
[2019-06-30 19:19] LABS: CHOL - HDL RATIO 3.1 ratio (2.3-4.1); LDL-HDL RATIO 1.6 ratio (1.5-3.5)
== END | disposition home or self-care (01) ==
LOC: D.LABREF 18:51
PROVIDERS: ATTEND Internal Medicine Cardiovascular Disease
DX: I25.10 Atherosclerotic heart disease of native coronary artery without angina pectoris (principal); I11.9 Hypertensive heart disease without heart failure; I73.9 Peripheral vascular disease, unspecified

== ENCOUNTER → 2019-09-05 09:17 | Outpatient (CLI) | payer MEDICARE, BC ==
[2019-04-03 07:12] VITALS: BMI 26.3
== END | disposition home or self-care (01) ==
LOC: D.US 09:17
PROVIDERS: ATTEND Internal Medicine Cardiovascular Disease
DX: I65.23 Occlusion and stenosis of bilateral carotid arteries (principal)

== ENCOUNTER 2019-10-05 17:34 | Inpatient (IN) | payer MEDICARE, BC ==
[~2019-10-05] VITALS: Ht 170.2 cm; Wt 71.7 kg
[2019-10-05 18:21] LABS: BASOPHILS 0.2 % (0-2); EOSINOPHILS 0.6 % (0-7); HEMATOCRIT 46.9 % (36.0-48.0); HEMOGLOBIN 15.6 g/dL (12-16); IMMATURE GRANULOCYTES 0.2 % (0-5); LYMPHOCYTES 22.2 % (15-50); MCH 32.2 pg (26.0-34.0); MCHC 33.3 g/dL (31.0-37.0); MCV 96.7 fL (80.0-100.0); MEAN PLATELET VOLUME 11.4 fL (7.4-10.4); MONOCYTES 6.1 % (2-11); NEUTROPHILS 70.7 % (40-80); PLATELET COUNT 265 10x3/uL (130-400); RBC 4.85 10x6/uL (4.00-5.40); RDW 13.3 % (11.5-14.5); WBC 12.9 10x3/uL (4.8-10.8)
[2019-10-05 18:38] LABS: CALC OSMOLALITY 283 mosm/kg (275-300); CALCIUM 9.8 mg/dL (8.5-10.1); CARBON DIOXIDE 32.9 mmol/L (21.0-32.0); CHLORIDE - SERUM 102 mmol/L (98-107); CREATININE - SERUM 1.3 mg/dL (0.6-1.3); GLUCOSE 115 mg/dL (74-106); SODIUM 141 mmol/L (136-145); UREA NITROGEN 17 mg/dL (7-18); eGFR NON AFRICAN AMERICAN 42 mL/min (90-120)
[2019-10-05 18:47] LABS: ALBUMIN 3.5 g/dL (3.4-5.0); ALKALINE PHOSPHATASE 70 U/L (30-120); ALT (SGPT) 53 U/L (10-68); AMYLASE - SERUM 26 U/L (25-115); BILIRUBIN - TOTAL 0.35 mg/dL (0.2-1.3); LIPASE 82 U/L (73-393); PROTEIN - SERUM 6.9 g/dL (6.4-8.2); TROPONIN-I < 0.017 ng/mL (0.000-0.060)
[2019-10-05 21:45] LABS: BILIRUBIN NEGATIVE (NEGATIVE); GLUCOSE NEGATIVE (NEGATIVE); KETONE NEGATIVE (NEGATIVE); NITRITE NEGATIVE (NEGATIVE); SPECIFIC GRAVITY 1.005 (1.005-1.020); UROBILINOGEN NORMAL (NORMAL)
[2019-10-05 21:46] LABS: WHITE CELLS - URINE RARE /hpf (NEGATIVE)
[2019-10-05 21:47] LABS: BACTERIA FEW /hpf (NEGATIVE); EPITHELIAL CELLS 0-5 /hpf (0-5); RED CELLS - URINE RARE /hpf (0-5)
[2019-10-05 22:14] VITALS: BP 150/60
[2019-10-05 23:04] VITALS: BP 147/58
[2019-10-05] MEDS ORDERED: LIPITOR20 MG PO (23:49)
[2019-10-05] MEDS ORDERED: BREO ELLIPTA 21 EACH (23:51)
[2019-10-05] MEDS ORDERED: VENTOLIN HFA [SP8 GM INH (23:52)
[2019-10-05] MEDS ORDERED: FLUTICASONE PRO16 GM NASAL (23:55)
[2019-10-05] MEDS ORDERED: K-DUR20 MEQ PO (23:55)
[2019-10-06] VITALS (7 sets, daily range): BP systolic 112–153; BP diastolic 47–72; Ht 170.2 cm; Wt 71.7 kg
--- NOTE | 2019-10-06 00:52 | NUR ---
RECEIVED REPORT FROM ALEX GRANADO IN ER. ARRIVED TO FLOOR ON STRETCHER. TRANSFERED SELF TO BED. ALERT AND ORIENTED X4. UP AD DYLAN. GOOD HISTORIAN. IV TO RIGHT WRIST WITH LR AT 100CC/HR. NO REDNESS OR SWELLING TO SITE. DENIES ANY NEEDS AT THIS TIME. ASSESSMENT COMPLETED.
[2019-10-06 05:48] LABS: BASOPHILS 0 % (0-2); EOSINOPHILS 0 % (0-7); HEMATOCRIT 44.7 % (36.0-48.0); HEMOGLOBIN 14.8 g/dL (12-16); IMMATURE GRANULOCYTES 0.1 % (0-5); LYMPHOCYTES 19.4 % (15-50); MCH 32.2 pg (26.0-34.0); MCHC 33.1 g/dL (31.0-37.0); MCV 97.4 fL (80.0-100.0); MEAN PLATELET VOLUME 11.8 fL (7.4-10.4); MONOCYTES 0.5 % (2-11); PLATELET COUNT 245 10x3/uL (130-400); RBC 4.59 10x6/uL (4.00-5.40); RDW 13.4 % (11.5-14.5)
[2019-10-06 06:08] LABS: ANION GAP 9.9 mmol/L (8-16); CALCIUM 9.2 mg/dL (8.5-10.1); CARBON DIOXIDE 31.6 mmol/L (21.0-32.0); CREATININE - SERUM 1.3 mg/dL (0.6-1.3); MAGNESIUM - SERUM 1.6 mg/dL (1.8-2.4); PHOSPHOROUS 3.3 mg/dL (2.5-4.9)
[2019-10-06 06:09] LABS: POTASSIUM - SERUM 3.5 mmol/L (3.5-5.1)
[2019-10-06 06:32] LABS: WBC 7.6 10x3/uL (4.8-10.8)
--- NOTE | 2019-10-06 07:15 | NUR ---
RECEIVED PT IN BED EYES CLOSED RESP UNLABORED SKIN W/D COLOR WNL NAD NOTED
--- NOTE | 2019-10-06 10:08 | HP ---
PATIENT: HUMBERTO CHOW MEDICAL RECORD: [id number] ACCOUNT: [id number] LOCATION:[address] : [birth year] ADMISSION DATE: 10/05/19 PCP: KIRSTY GONSALEZ MD HISTORY AND PHYSICAL EXAMINATION DATE OF ADMISSION: 10/05/2019 CHIEF COMPLAINT: Nausea, vomiting for days. HISTORY: This is a 74-year-old female, who I saw in my office on September 30. At that time, she was complaining of mostly lower abdominal pain that started about a week before. She has been having diarrhea, nausea, vomiting daily. She felt bloated. With her symptoms, she was treated as if she had diverticulitis and started on metronidazole and Cipro and placed on a bland diet. Her CBC was normal in my office. She has been doing that now for 5 or 6 days now. She continues to have nausea and vomiting if she does anything more than a bland diet. A retired nurse, who lives in her neighborhood, told her she was dehydrated and needed to come to the Emergency Room and she did. In the ER, her white count was normal. Her initial basic metabolic panel showed low potassium. Her magnesium was a little low at 1.6. Troponin was okay. CT of abdomen and pelvis showed no acute inflammatory or infectious process. Again, she has been on Cipro and Flagyl now for about 5 days. The diverticulitis does not usually cause nausea or vomiting. She is admitted for dehydration, nausea, vomiting, and diverticulitis. PAST MEDICAL AND SURGICAL HISTORY: She has had coronary artery disease, peripheral artery disease, COPD, osteoarthritis, myoclonus, hyperlipidemia, hypertension, TIA, lumbar canal stenosis. PAST SURGICAL HISTORY: She has had bladder sling, right carotid endarterectomy by Dr. Vora. She has had L4-5 TLIF with cage and screws back in June 2017. She has had AAA repair and aortofemoral bypass. ALLERGIES: ASPIRIN, IODINE, PRAVASTATIN, SHELLFISH, MUSHROOMS. HOME MEDICATIONS: Atorvastatin 10 mg a day, clonazepam 0.5 twice a day for myoclonus, DuoNeb via nebulizer p.r.n., calcium carbonate twice a day, vitamin D3 at 1000 units daily, Breo daily, Plavix 75 mg once a day, HCTZ 25 mg once a day, potassium 20 mEq once a day. HABITS: Former smoker, occasional alcohol, no illicit drug use. SOCIAL HISTORY: , retired. FAMILY HISTORY: Noncontributory. REVIEW OF SYSTEMS: GENERAL: No major weight changes. HEENT: No particular sinus or allergy problems. RESPIRATORY: Has COPD, followed by a metal weigher at [place]. CARDIAC: Has coronary artery disease. GASTROINTESTINAL: No known history of diarrhea, constipation, or heartburn. GENITOURINARY: She has had a bladder sling procedure. MUSCULOSKELETAL: She has arthritic aches and pains and some lower back discomfort. HISTORY AND PHYSICAL [id number] HUMBERTO CHOW NEUROLOGIC: She has myoclonus. She denies seizures or migraines. PSYCHIATRIC: Denies depression or melancholia. PHYSICAL EXAMINATION: VITAL SIGNS: Temperature 98.2, pulse 77, respirations 18, blood pressure 151/72, O2 sat 96%. GENERAL: She is awake and alert. She is not in acute distress at this time. SKIN: Warm and dry. HEENT: Grossly within normal limits. NECK: Supple. HEART: Regular rate and rhythm without murmur. LUNGS: Clear. ABDOMEN: Soft. There is tenderness more in the lower abdomen. No guarding, no rebound, no mass. Bowel sounds are active. EXTREMITIES: No edema. NEUROLOGIC: Unremarkable. LABORATORY DATA: In the ER, her potassium was 3.0 last night. The rest of her lab is fairly unremarkable. RADIOLOGIC DATA: CT of the abdomen and pelvis showed no acute inflammatory/infectious process in the abdomen or pelvis. There is a stable aneurysmal dilatation of the distal ascending thoracic aorta. She has had AAA repair. ASSESSMENT: 1. Hypokalemia. 2. Persistent nausea and vomiting. 3. Diverticulitis. PLAN: IV fluids. Replace potassium. Zofran p.r.n. We will continue antibiotics. We will ask Dr. Downs to see as this nausea and vomiting has been going on now for well over a week. Other tests or procedures as warranted. TRANSINT:[id number] Voice Confirmation ID: [id number] DOCUMENT ID: [id number] KIRSTY GONSALEZ MD at 1008 CC: [id number] DICTATION DATE: 10/06/19904 RAW STOCK DYEING MACHINE TENDER: 10/06/19 09 [facility] [place] [id number] [place] [address]
--- NOTE | 2019-10-06 19:30 | NUR ---
PT SITTING UP IN BED WITHOUT DISTRESS, AOX4. IV RIGHT WRIST INFUSING LR @ 100. O2 2L/NC. ASSISTED PT UP TO SINK TO WASH FACE AND BRUSH TEETH. PT TOLERATING CLEAR LIQUID DIET, NO N/V. PROVIDED PT WITH HOT TEA. DENIES OTHER NEEDS. CL IN REACH, WILL CTM
[2019-10-07] VITALS: BP 125/64
--- NOTE | 2019-10-07 02:19 | NUR ---
IV RIGHT WRIST INFILTRATED. DC'D WITH CATHETER INTACT. RESITED 22G IV RIGHT FA X1 ATTEMPT. DENIES OTHER NEEDS. WILL CTM
[2019-10-07 04:00] VITALS: BP 158/71
[2019-10-07 06:29] LABS: BASOPHILS 0.1 % (0-2); EOSINOPHILS 0.6 % (0-7); HEMATOCRIT 40.4 % (36.0-48.0); HEMOGLOBIN 13.4 g/dL (12-16); IMMATURE GRANULOCYTES 0.2 % (0-5); LYMPHOCYTES 41.5 % (15-50); MCHC 33.2 g/dL (31.0-37.0); MCV 96.4 fL (80.0-100.0); MEAN PLATELET VOLUME 11.5 fL (7.4-10.4); MONOCYTES 5.9 % (2-11); NEUTROPHILS 51.7 % (40-80); PLATELET COUNT 223 10x3/uL (130-400); RBC 4.19 10x6/uL (4.00-5.40); RDW 13.5 % (11.5-14.5)
[2019-10-07 07:07] LABS: ANION GAP 10.8 mmol/L (8-16); BILIRUBIN - TOTAL 0.18 mg/dL (0.2-1.3); CALCIUM 8.4 mg/dL (8.5-10.1); CARBON DIOXIDE 29.8 mmol/L (21.0-32.0); MAGNESIUM - SERUM 1.5 mg/dL (1.8-2.4); POTASSIUM - SERUM 3.6 mmol/L (3.5-5.1)
[2019-10-07 07:39] LABS: ALBUMIN 2.5 g/dL (3.4-5.0); CREATININE - SERUM 0.9 mg/dL (0.6-1.3); PROTEIN - SERUM 4.8 g/dL (6.4-8.2)
--- NOTE | 2019-10-07 07:39 | NUR ---
PT RESTING IN BED. RESP EVEN AND UNLABORED. O2 @ 2L NC IN PLACE AT THIS TIME. DENIES PAIN, N/V PRESENTLY. IV TO RIGHT FOREARM WITH LR @ 100ML/HR INFUSING VIA PUMP. SITE WITHOUT REDNESS OR EDEMA. DENIES FURTHER NEEDS AT THIS TIME. CL WITHIN REACH. ENCOURAGED TO CALL WITH NEEDS. CONTINUE POC
[2019-10-07 09:11] VITALS: BP 136/75
[2019-10-07 13:31] VITALS: BP 138/67
[2019-10-07 18:08] VITALS: BP 136/83; BP 155/77
--- NOTE | 2019-10-07 19:00 | NUR ---
BEDSIDE REPORT RECEIVED AND CARE OF PT ASSUMED. PT LYING IN SUPINE POSITION VISITING WITH SPOUSE. IV TO RIGHT FA PATENT WITH LR INFUSING AT 100 ML/HR. TELEMETRY IN PLACE AND READING SR AT THIS ASSESSMENT. WILL MONITOR FOR NEEDS.
[2019-10-07 20:00] VITALS: BP 130/66
--- NOTE | 2019-10-07 20:49 | NUR ---
HS MEDICATIONS GIVEN. WILL CONTINUE TO MONITOR FOR NEEDS.
--- NOTE | 2019-10-07 21:52 | NUR ---
PT SHOWERED AND ALL LINENS AND GOWN CHANGED.
--- NOTE | 2019-10-07 22:04 | NUR ---
IV FLUIDS RE-STARTED AND TELEMETRY REPLACED SINCE PT OUT OF SHOWER NOW.
[2019-10-08] VITALS: BP 96/49
[2019-10-08 04:00] VITALS: BP 137/92
[2019-10-08 09:52] LABS: BASOPHILS 0.2 % (0-2); EOSINOPHILS 1.6 % (0-7); HEMATOCRIT 41.4 % (36.0-48.0); HEMOGLOBIN 13.6 g/dL (12-16); IMMATURE GRANULOCYTES 0.2 % (0-5); LYMPHOCYTES 37.7 % (15-50); MCH 32.1 pg (26.0-34.0); MCHC 32.9 g/dL (31.0-37.0); MCV 97.6 fL (80.0-100.0); MEAN PLATELET VOLUME 11.7 fL (7.4-10.4); NEUTROPHILS 53.3 % (40-80); PLATELET COUNT 212 10x3/uL (130-400); RBC 4.24 10x6/uL (4.00-5.40); RDW 13.9 % (11.5-14.5); WBC 10.9 10x3/uL (4.8-10.8)
[2019-10-08 09:53] VITALS: BP 144/71
[2019-10-08 10:03] LABS: ALBUMIN 2.8 g/dL (3.4-5.0); ANION GAP 10.2 mmol/L (8-16); BILIRUBIN - TOTAL 0.25 mg/dL (0.2-1.3); CALCIUM 8.5 mg/dL (8.5-10.1); CARBON DIOXIDE 30.8 mmol/L (21.0-32.0); CREATININE - SERUM 1.1 mg/dL (0.6-1.3); MAGNESIUM - SERUM 1.2 mg/dL (1.8-2.4); PHOSPHOROUS 2.5 mg/dL (2.5-4.9); PROTEIN - SERUM 5.6 g/dL (6.4-8.2)
[2019-10-08 13:11] VITALS: BP 139/75
--- NOTE | 2019-10-08 14:30 | NUR ---
NUTRITION F/U CHART REVIEWED, PT VISIT. PROVIDED PT WITH LOW FIBER/LOW RESIDUE DIET GUIDELINES. ENCOURAGED PT TO AVOID FRIED FOODS. ALSO SUGGESTED PT TRY EATING SEVERAL SMALL MEALS PER DAY. PT VOICED UNDERSTANDING. RD FOLLOWING
--- NOTE | 2019-10-08 15:30 | NUR ---
PATIENT AMBULATED WITH NURSE IN [place] [address] NURSING STATION WITH WALKER. O2 OFF. 95 % WHILE AMBULATING. NO PROBLEMS AT THIS TIME.
[2019-10-08 17:02] VITALS: BP 143/74
--- NOTE | 2019-10-08 18:45 | NUR ---
PATIENT IN BED WITH IV INTACT. NO COMPLAINTS OR SIGNS OF DISTRESS. CALL LIGHT WITHIN REACH.
--- NOTE | 2019-10-08 19:30 | NUR ---
PT SITTING UP IN BED WITHOUT DISTRESS, AOX4. DENIES PAIN OR NAUSEA AT THIS TIME. DENIES ANY NEEDS. CL IN REACH, WILL CTM
[2019-10-08 20:00] VITALS: BP 103/46
--- NOTE | 2019-10-08 21:00 | NUR ---
HS MEDS GIVEN. PT REFUSING MIDNIGHT VITALS STATING SHE WANTS TO SLEEP
[2019-10-09] VITALS: BP 149/72
[2019-10-09 04:00] VITALS: BP 152/65
[2019-10-09 09:34] VITALS: BP 146/69
[2019-10-09 13:04] VITALS: BP 158/79
[2019-10-09] MEDS ORDERED: CARAFATE1 G PO (13:08)
[2019-10-09] MEDS ORDERED: PROTONIX40 MG PO (13:10)
[2019-10-09] MEDS ORDERED: Nystatin Oral Susp [ PO (13:11)
--- NOTE | 2019-10-09 13:45 | NUR ---
PATIENT IV REMOVED WITH CATH TIP INTACT. PATIENT BEIND DC'D. TOLERATED REGULAR DIET FOR LUNCH WITH NO N/V/D. NO COMPLAINTS OR SIGNS OF DISTRESS. CALL DARELL ROBLES.
--- NOTE | 2019-10-09 14:20 | NUR ---
PATIENT RECIEVED DC INSTRUCTIONS. VERBALIZED UNDERSTANDING. NO QUESTIONS AT THIS TIME. IV REMOVED WITH CATH TIP INTACT. EXPLAINED TO AUTOMOTIVE MANAGER MEDS FROM PHARMACY. VERBALIZED UNDERSTANDING.. WAITING FOR TRANSPORTION TO DC.
--- NOTE | 2019-10-09 14:30 | NUR ---
PATIENT ESCORTED DOWN TO PRIVATE VEHICLE WITH PERSONAL BELONGINGS ESCORTED BY EMPLOYMENT LAW ATTORNEY. FAMILY AT SIDE.
--- NOTE | 2019-10-09 14:30 | MORECARE ---
CASE MANAGEMENT DISCHARGE SUMMARY PATIENT: HUMBERTO CHOW UNIT: [id number] ADM DATE: 10/06/19 AGE: 74 : 47 SEX: F ROOM/BED: D.2207 AUTHOR: NOVA GUERRA PHYSICIAN: REFERRING PHYSICIAN: JENIFER MOORE MD DATE OF SERVICE: 10/09/19 Discharge Plan Patient Name: HUMBERTO CHOW [facility] [facility] 1945 Planned Disposition: Home or Self Care Anticipated Discharge Date: Discharge Date: Expected LOS: Initial Reviewer: [email or web address] Initial Review Date: 10/05/2019 Generated: 10/09/19 3:30 pm Coverage Notice Reviewer: [email or web address] Kirk Peres Notice Issued Date-Time: 10/06/2019 8:22 Notice Type: Medicare Outpatient Observation Notice Notice Delivered To: Patient Relationship to Patient: Pneumatic Tool Repairer Name: Delivery Method: HAND - Hand Delivered Marybeth Days: Prior Verbal Notification: Recipient Understood Notice: Yes Recipient Signature: Yes Med Rec Note Co-signed by Attending: Coverage Notice Comment: SPEARS SERVED, EXPLAINED, AND SIGNED BY PATIENT. THE ORIGINAL WAS PROVIDED TO THE PATIENT AND COPY PLACED ON CHART. Reviewer: [email or web address] Kirk Alcala Notice Issued Date-Time: 10/09/2019 14:10 Notice Type: IM Discharge Notice Notice Delivered To: Patient Relationship to Patient: Pneumatic Tool Repairer Name: Delivery Method: HAND - Hand Delivered Marybeth Days: Prior Verbal Notification: Recipient Understood Notice: Yes Recipient Signature: Yes Med Rec Note Co-signed by Attending: Coverage Notice Comment: Patient Name: HUMBERTO CHOW Page [phone] at 1430 All edits/amendments must be made on the electronic document DICTATION DATE: 10/09/19 1430 QUARTER SECTION IRONER: [email or web address] 10/09/19 1430 RPT#: [id number] DC DATE: STATUS: ADM IN [facility] [address] [place] [address] END OF REPORT
--- NOTE | 2019-10-09 14:38 | MORECARE ---
CASE MANAGEMENT DISCHARGE SUMMARY PATIENT: HUMBERTO CHOW UNIT: [id number] ADM DATE: 10/06/19 AGE: 74 : 46 SEX: F ROOM/BED: D.2202 AUTHOR: NOVA GUERRA PHYSICIAN: REFERRING PHYSICIAN: JENIFER MOORE MD DATE OF SERVICE: 10/09/19 Discharge Plan Patient Name: HUMBERTO CHOW Facility: [facility]:[place] : 1945 Planned Disposition: Home or Self Care Anticipated Discharge Date: Discharge Date: Expected LOS: Initial Reviewer: [email or web address] Initial Review Date: 10/05/2019 Generated: 10/09/19 3:37 pm Comments DCP- Discharge Planning Updated by [email or web address]: Perla Alcala on 10/09/19 1:[address] Patient Name: HUMBERTO CHOW Admission Status: ER Accout number: [id number] Admission Date: 10-06-2019 : 1945 Admission Diagnosis: Attending: JENIFER MOORE Current LOS: 3 Anticipated DC Date: Planned Disposition: Home or Self Care Primary Insurance: MEDICARE A & B Discharge Planning Comments: CM met with patient to complete initial dc planning assessment. CM educated patient on the CM role and verbal consent given by patient to complete assessment. Patient lives at home with her . At discharge patient plans to return home and feels this is a safe discharge. CM discussed availability of home health, rehab services, and medical equipment. she uses home o2 at night and a nebulizer from [facility].IMM served and explained. Signed copy placed on chart. Patient denied known discharge needs at this time. CM will continue to follow and will assist as needed with dc plans/needs. Distillery Manager: Perla Alcala DCPIA - Discharge Planning Initial Assessment Updated by [email or web address]: Perla Alcala on 10/09/19 2:30 pm * Is the patient Alert and Oriented? Yes * How many steps to enter\exit or inside your home? * PCP [facility] * Pharmacy [facility] * Preadmission Environment Home with Family * ADLs Independent * Equipment Nebulizer Oxygen * List name and contact numbers for known caregivers / representatives who currently or will assist patient after discharge: MARYLU CHOW [phone] * Verbal permission to speak to the caregivers and representatives has been obtained from the patient. N/A * Additional services required to return to the preadmission environment? No * Can the patient safely return to the preadmission environment? Yes * Has this patient been hospitalized within the prior 30 days at any hospital? No Coverage Notice Reviewer: [email or web address] Kirk April Martinezann marie Notice Issued Date-Time: 10/06/2019 8:22 Notice Type: Medicare Outpatient Observation Notice Notice Delivered To: Patient Relationship to Patient: Geosciences Associate Professor Name: Delivery Method: HAND - Hand Delivered Marybeth Days: Prior Verbal Notification: Recipient Understood Notice: Yes Recipient Signature: Yes Med Rec Note Co-signed by Attending: Coverage Notice Comment: SPEARS SERVED, EXPLAINED, AND SIGNED BY PATIENT. THE ORIGINAL WAS PROVIDED TO THE PATIENT AND COPY PLACED ON CHART. Reviewer: [email or web address] Kirk Alcala Notice Issued Date-Time: 10/09/2019 14:10 Notice Type: IM Discharge Notice Notice Delivered To: Patient Relationship to Patient: Geosciences Associate Professor Name: Delivery Method: HAND - Hand Delivered Marybeth Days: Prior Verbal Notification: Recipient Understood Notice: Yes Recipient Signature: Yes Med Rec Note Co-signed by Attending: Coverage Notice Comment: Last DP export: 10/09/19 1:30 pm Patient Name: HUMBERTO CHOW Page [phone] at 1438 All edits/amendments must be made on the electronic document DICTATION DATE: 10/09/191436 STRIP PRESSER: RODRIGO 10/09/191436 RPT#: [id number] DC DATE: STATUS: ADM IN [facility] [address] [place] [address] END OF REPORT
--- NOTE | 2019-10-10 14:51 | MORECARE ---
CASE MANAGEMENT DISCHARGE SUMMARY PATIENT: HUMBERTO CHOW UNIT: [id number] ADM DATE: 10/06/19 AGE: 74 : 46 SEX: F ROOM/BED: D.2209 AUTHOR: NOVA GUERRA PHYSICIAN: REFERRING PHYSICIAN: JENIFER MOORE MD DATE OF SERVICE: 10/10/19 Discharge Plan Patient Name: HUMBERTO CHOW Facility: [facility]:[place] : 1945 Planned Disposition: Home or Self Care Anticipated Discharge Date: Discharge Date: 10/09/2019 Expected LOS: 0 Initial Reviewer: [email or web address] Initial Review Date: 10/05/2019 Generated: 10/10/19 3:51 pm Comments DCP- Discharge Planning Updated by [id number]: Perla Alcala on 10/09/19 1:[address] Patient Name: HUMBERTO CHOW Admission Status: ER Accout number: [id number] Admission Date: 10-06-2019 : 1945 Admission Diagnosis: Attending: JENIFER MOORE Current LOS: 3 Anticipated DC Date: Planned Disposition: Home or Self Care Primary Insurance: MEDICARE A & B Discharge Planning Comments: CM met with patient to complete initial dc planning assessment. CM educated patient on the CM role and verbal consent given by patient to complete assessment. Patient lives at home with her . At discharge patient plans to return home and feels this is a safe discharge. CM discussed availability of home health, rehab services, and medical equipment. she uses home o2 at night and a nebulizer from [facility].IMM served and explained. Signed copy placed on chart. Patient denied known discharge needs at this time. CM will continue to follow and will assist as needed with dc plans/needs. Finishing Supervisor Plastic Sheets: Perla Alcala DCPIA - Discharge Planning Initial Assessment Updated by [email or web address]: Perla Alcala on 10/09/19 2:30 pm * Is the patient Alert and Oriented? Yes * How many steps to enter\exit or inside your home? * PCP WALLACE * Pharmacy [facility] * Preadmission Environment Home with Family * ADLs Independent * Equipment Nebulizer Oxygen * List name and contact numbers for known caregivers / representatives who currently or will assist patient after discharge: MARYLU CHOW [phone] * Verbal permission to speak to the caregivers and representatives has been obtained from the patient. N/A * Additional services required to return to the preadmission environment? No * Can the patient safely return to the preadmission environment? Yes * Has this patient been hospitalized within the prior 30 days at any hospital? No Coverage Notice Reviewer: [id number] Kirk Peres Notice Issued Date-Time: 10/06/2019 8:22 Notice Type: Medicare Outpatient Observation Notice Notice Delivered To: Patient Relationship to Patient: Mobility Developer Name: Delivery Method: HAND - Hand Delivered Marybeth Days: Prior Verbal Notification: Recipient Understood Notice: Yes Recipient Signature: Yes Med Rec Note Co-signed by Attending: Coverage Notice Comment: SPEARS SERVED, EXPLAINED, AND SIGNED BY PATIENT. THE ORIGINAL WAS PROVIDED TO THE PATIENT AND COPY PLACED ON CHART. Reviewer: [id number] Kirk Alcala Notice Issued Date-Time: 10/09/2019 14:10 Notice Type: IM Discharge Notice Notice Delivered To: Patient Relationship to Patient: Mobility Developer Name: Delivery Method: HAND - Hand Delivered Marybeth Days: Prior Verbal Notification: Recipient Understood Notice: Yes Recipient Signature: Yes Med Rec Note Co-signed by Attending: Coverage Notice Comment: Last DP export: 10/09/19 1:38 pm Patient Name: HUMBERTO CHOW Page [phone] at 1451 All edits/amendments must be made on the electronic document DICTATION DATE: 10/10/19 145 SOURCING INTERNSHIP: RODRIGO 10/10/19 1451 RPT#: [id number] DC DATE:10/09/19 STATUS: DIS IN [facility] [id number] [place] [address] END OF REPORT
== END 2019-10-09 14:40 | disposition home or self-care (01) | DRG 391 ==
LOC: D.ER 17:34 → D.M2 22:00 → OBSVTIME 22:00 → D.M2 22:00 → D.MS 10-06 12:37
PROVIDERS: Family Medicine; Internal Medicine Gastroenterology; ADMIT Family Medicine; ATTEND Family Medicine
PROC: 0DB68ZX Excision of Stomach, Via Natural or Artificial Opening Endoscopic, Diagnostic (ICD-10-PCS; 2019-10-07)
PROC: 0DB98ZX Excision of Duodenum, Via Natural or Artificial Opening Endoscopic, Diagnostic (ICD-10-PCS; principal; 2019-10-07 16:30)
DX: K21.0 Gastro-esophageal reflux disease with esophagitis (principal); E43 Unspecified severe protein-calorie malnutrition; B37.81 Candidal esophagitis; K57.92 Diverticulitis of intestine, part unspecified, without perforation or abscess without bleeding; E87.6 Hypokalemia; I25.10 Atherosclerotic heart disease of native coronary artery without angina pectoris; I73.9 Peripheral vascular disease, unspecified; J44.9 Chronic obstructive pulmonary disease, unspecified; M19.90 Unspecified osteoarthritis, unspecified site; E78.5 Hyperlipidemia, unspecified; I10 Essential (primary) hypertension; K29.70 Gastritis, unspecified, without bleeding

== ENCOUNTER 2020-01-16 17:26 | Inpatient (IN) | payer MEDICARE, BC ==
[~2020-01-16] VITALS: Ht 170.2 cm; Wt 63.5 kg
[~2020-01-16 17:26] MED LIST changes: +CARAFATE1 G PO; +FLUTICASONE PRO16 GM NASAL; +LIPITOR20 MG PO; +Nystatin Oral Susp [ PO; +PROTONIX40 MG PO; +VENTOLIN HFA [SP8 GM INH
[2020-01-16 18:13] LABS: BASOPHILS 0.1 % (0-2); EOSINOPHILS 0.5 % (0-7); HEMATOCRIT 47.6 % (36.0-48.0); HEMOGLOBIN 15.3 g/dL (12-16); IMMATURE GRANULOCYTES 0.3 % (0-5); LYMPHOCYTES 17.5 % (15-50); MCH 31.7 pg (26.0-34.0); MCHC 32.1 g/dL (31.0-37.0); MCV 98.8 fL (80.0-100.0); MEAN PLATELET VOLUME 11.8 fL (7.4-10.4); MONOCYTES 6.3 % (2-11); NEUTROPHILS 75.3 % (40-80); PLATELET COUNT 202 10x3/uL (130-400); RBC 4.82 10x6/uL (4.00-5.40); RDW 14.1 % (11.5-14.5); WBC 19.9 10x3/uL (4.8-10.8)
[2020-01-16 18:24] LABS: CALC OSMOLALITY 282 mosm/kg (275-300); CALCIUM 9.2 mg/dL (8.5-10.1); CARBON DIOXIDE 29.4 mmol/L (21.0-32.0); CHLORIDE - SERUM 102 mmol/L (98-107); CREATININE - SERUM 1.3 mg/dL (0.6-1.3); GLUCOSE 102 mg/dL (74-106); POTASSIUM - SERUM 3.1 mmol/L (3.5-5.1); SODIUM 140 mmol/L (136-145); UREA NITROGEN 24 mg/dL (7-18); eGFR NON AFRICAN AMERICAN 42 mL/min (90-120)
[2020-01-16 18:32] LABS: ALBUMIN 3.5 g/dL (3.4-5.0); ALKALINE PHOSPHATASE 84 U/L (30-120); ALT (SGPT) 31 U/L (10-68); AMYLASE - SERUM 23 U/L (25-115); BILIRUBIN - TOTAL 0.95 mg/dL (0.2-1.3); LIPASE 51 U/L (73-393); PROTEIN - SERUM 6.4 g/dL (6.4-8.2)
[2020-01-16 18:46] LABS: TROPONIN-I < 0.017 ng/mL (0.000-0.060)
[2020-01-16 19:11] VITALS: BP 137/80
[2020-01-16 19:11] LABS: BILIRUBIN NEGATIVE (NEGATIVE); GLUCOSE NEGATIVE (NEGATIVE); KETONE MODERATE mg/dL (NEGATIVE); NITRITE NEGATIVE (NEGATIVE); UROBILINOGEN NORMAL (NORMAL)
[2020-01-16 20:00] VITALS: BP 143/78
--- NOTE | 2020-01-16 22:00 | NUR ---
ASSESSED PATIENT ON ARRIVAL, SHE IS ALERT AND ORIENTED, ABLE TO VERBALIZE NEEDS. V INFUSING MEDS ORDERED AND ASSESSMENT PAPERWORK DONE AT THE BEDSIDE. ALL MEDS GONE OVER AND CONFIRMED WITH PATIENT. TALKED ABOUT SAFTEY WITH GETTING UP TO BATHROOM AND GIVEN CALL LIGHT TO CALL IF NEEDED.
[2020-01-16 22:59] VITALS: BP 77/56; BMI 21.9
[2020-01-17] VITALS: BP 106/67
[2020-01-17 04:00] VITALS: BP 154/75
[2020-01-17 05:42] LABS: BASOPHILS 0.1 % (0-2); EOSINOPHILS 0.5 % (0-7); HEMATOCRIT 41.2 % (36.0-48.0); HEMOGLOBIN 13.4 g/dL (12-16); IMMATURE GRANULOCYTES 0.4 % (0-5); LYMPHOCYTES 24.1 % (15-50); MCH 31.8 pg (26.0-34.0); MCHC 32.5 g/dL (31.0-37.0); MCV 97.6 fL (80.0-100.0); MEAN PLATELET VOLUME 12.3 fL (7.4-10.4); MONOCYTES 8.1 % (2-11); NEUTROPHILS 66.8 % (40-80); PLATELET COUNT 193 10x3/uL (130-400); RBC 4.22 10x6/uL (4.00-5.40); RDW 13.9 % (11.5-14.5); WBC 19.4 10x3/uL (4.8-10.8)
[2020-01-17 06:35] LABS: ALBUMIN 2.7 g/dL (3.4-5.0); ANION GAP 8.8 mmol/L (8-16); CALCIUM 8.1 mg/dL (8.5-10.1); CARBON DIOXIDE 28.2 mmol/L (21.0-32.0); MAGNESIUM - SERUM 1.7 mg/dL (1.8-2.4); PHOSPHOROUS 2.8 mg/dL (2.5-4.9); PROTEIN - SERUM 5.4 g/dL (6.4-8.2)
[2020-01-17 08:30] VITALS: BP 152/50
--- NOTE | 2020-01-17 08:38 | NUR ---
AWAKE AND ALERT. ORIENTED X3. REPORTS PAIN AT LEVEL 6. DISCUSSED NEED TO USE MORPHINE PRN ORDERED. GIVEN 4MG MORPHINE SLOW IVP FOR ABDOMINAL PAIN. WILL MONITOR. LUNGS ARE CLEAR BILATERALLY, NO COUGH NOTED. SKIN IS INTACT WITHOUT REDNESS. IV TO LEFT FOREARM IS PATENT WITHOUT REDNESS AT INSERTION SITE. ATE ALL OF CL BREAKFAST WITHOUT NAUSEA OR INCREASED PAIN. WILL MONITOR. DENIES NEEDS.
--- NOTE | 2020-01-17 11:00 | NUR ---
REQUESTED AND GIVEN 4MG ZOFRAN SLOW IVP FOR C/O NAUSEA. WILL MONITOR.
[2020-01-17 12:30] VITALS: BP 139/84
--- NOTE | 2020-01-17 13:40 | NUR ---
REQUESTED PAIN MEDICINE BUT WANTS PILLS NOT MORPHINE. DR. DEL TORO NOTIFIED OF SAME NEW ORDERS RECEIVED. GIVEN ONE HYDROCODONE PO AND PATIENT HAD LARGE VOLUMN OF EMESIS, APPROXIMATELY 200cc. ASSISTED TO BED AT THIS TIME.
--- NOTE | 2020-01-17 14:20 | NUR ---
OFF UNIT VIA BED FOR SURGERY.
--- NOTE | 2020-01-17 15:16 | NUR ---
RESTING QUIETLY IN BED WITH EYES CLOSED. REPORTS PAIN AND NAUSEA EASED AND ALMOST GONE AFTER THROWING UP. WILL CONTINUE TO MONITOR.
[2020-01-17 16:37] VITALS: Ht 170.2 cm; Wt 63.5 kg
[2020-01-17 17:39] VITALS: BP 129/83
--- NOTE | 2020-01-17 18:53 | NUR ---
RESTING QUIETLY IN BED. DENIES NEEDS. NO CHANGES NOTED. DENIES NEEDS.
--- NOTE | 2020-01-17 19:00 | NUR ---
BEDSIDE REPORT RECEIVED AND CARE OF PT ASSUMED. PT LYING IN SUPINE POSITION WATCHING TV. IV TO LEFT WRIST PATENT WITH NS INFUSINGA AT 100 ML/HR. WILL MONITOR FOR NEEDS.
[2020-01-17 20:00] VITALS: BP 78/49
--- NOTE | 2020-01-17 20:40 | NUR ---
GAVE INCENTICE INSPIROMETER AND PERFORMED TEACHING ON USE.
--- NOTE | 2020-01-17 20:45 | NUR ---
HS MEDICATIONS GIVEN TO INCLUDE NORCO PO PER REQUEST FOR PAIN. WILL MONITOR FOR EFFECTIVENESS.
--- NOTE | 2020-01-17 21:55 | NUR ---
GAVE ZOFRAN IVP FOR C/O NAUSEA.
[2020-01-18] VITALS: BP 164/74
[2020-01-18 04:00] VITALS: BP 131/67
--- NOTE | 2020-01-18 07:52 | NUR ---
AWAKE AND ALERT. ORIENTED X3. REPORTS PAIN IMPROVED. NO NAUSEA AT THIS TIME. LUNGS ARE CLEAR BILATERALLY, NO COUGH NOTED. ENCOURAGED TO USE IS INSTRUCTED. IV TO LEFT FOREARM IS PATENT WITHOUT REDNESS AT INSERTION SITE. SKIN IS INTACT WITHOUT REDNESS. DENIES NEEDS.
[2020-01-18 08:29] VITALS: BP 153/62
--- NOTE | 2020-01-18 10:00 | NUR ---
RESTING QUIETLY IN BED. DENIES NEEDS. UP TO BR PER SELF. VOIDS WITHOUT DIFFICULTY.
[2020-01-18 12:14] VITALS: BP 160/68
--- NOTE | 2020-01-18 16:00 | NUR ---
UP TO SHOWER WITH SET UP ASSISTANCE. LINENS CHANGED PER STAFF.
[2020-01-18 16:20] VITALS: BP 96/56
--- NOTE | 2020-01-18 18:45 | NUR ---
RESTING QUIETLY IN BED. DENIES NEEDS. NO CHANGES NOTED. DENIES NAUSEA AT THIS TIME.
[2020-01-18 20:00] VITALS: BP 159/57
--- NOTE | 2020-01-18 20:30 | NUR ---
GAVE X2 ORANGE SHERBETS FOR HS SNACK. PT TOLERATING FULL LIQUID DIET WITHOUT NAUSEA.
--- NOTE | 2020-01-18 21:04 | NUR ---
HS MEDICATIONS GIVEN. PT DECLINES PAIN MED AT THIS TIME. WILL CONTINUE TO MONITOR CLOSLEY FOR NEEDS.
[2020-01-19] VITALS: BP 160/66
[2020-01-19 04:00] VITALS: BP 144/48
[2020-01-19 06:20] LABS: BASOPHILS 0.1 % (0-2); EOSINOPHILS 1.2 % (0-7); HEMATOCRIT 38.3 % (36.0-48.0); IMMATURE GRANULOCYTES 0.3 % (0-5); LYMPHOCYTES 25.2 % (15-50); MCH 31.2 pg (26.0-34.0); MCHC 31.3 g/dL (31.0-37.0); MCV 99.5 fL (80.0-100.0); MEAN PLATELET VOLUME 12.1 fL (7.4-10.4); MONOCYTES 7.1 % (2-11); NEUTROPHILS 66.1 % (40-80); PLATELET COUNT 161 10x3/uL (130-400); RBC 3.85 10x6/uL (4.00-5.40); RDW 14.1 % (11.5-14.5)
[2020-01-19 06:34] LABS: WBC 11.9 10x3/uL (4.8-10.8)
[2020-01-19 06:35] LABS: ANION GAP 7.4 mmol/L (8-16); CALCIUM 8.2 mg/dL (8.5-10.1); CARBON DIOXIDE 30.4 mmol/L (21.0-32.0); CREATININE - SERUM 0.9 mg/dL (0.6-1.3)
[2020-01-19 06:53] LABS: POTASSIUM - SERUM 2.8 mmol/L (3.5-5.1)
--- NOTE | 2020-01-19 07:10 | NUR ---
REC'D AWAKE AND ALERT. RESP EVEN AND UNLABORED WITH NO DISTRESS NOTED. CAN EXPRESS NEEDS AND WANTS. DENIES ANY PAIN OR DISCOMFORT AT THIS TIME. ASSESSMENT COMPLETED. C/L IN REACH AT BEDSIDE.
--- NOTE | 2020-01-19 07:47 | NUR ---
MEDICATED WITH NORCO FOR C/O ABD PAIN RATING 6/10 ON PAIN SCALE. H20 AND CALL LIGHT IN REACH AT BEDSIDE.
[2020-01-19 08:43] VITALS: BP 113/60
[2020-01-19 12:49] VITALS: BP 141/57
--- NOTE | 2020-01-19 15:01 | NUR ---
I have reviewed this patient and I concur with the Shift Assessment completed by the Licensed Practical Nurse today this shift.
[2020-01-19 17:25] VITALS: BP 130/74
--- NOTE | 2020-01-19 19:00 | NUR ---
BEDSIDE REPORT RECEIVED AND CARE OF PT ASSUMED. PT LYING IN HIGH LAZO'S POSITION WATCHING TV. IV TO RIGHT FA PATENT WITH NS INFUSING AT 100 ML/HR. DISCUSSED AM PROCEDURE AND NEED TO BE NPO AFTER MIDNIGHT, AND NO NARCOTIICS AFTER MIDNIGHT. PT VOICED UNDERSTANDING.
[2020-01-19 20:00] VITALS: BP 110/68
--- NOTE | 2020-01-19 20:35 | NUR ---
HS MEDICATIONS GIVEN TO INCLUDE NORCO PER REQUEST FOR PAIN, PER PRN ORDER. WILL CONTINUE TO MONITOR FOR NEEDS.
[2020-01-20] VITALS: BP 108/56
--- NOTE | 2020-01-20 | NUR ---
NPO STARTS NOW FOR AM TESTING. REMOVED ALL CUPS AND FOOD FROM BEDSIDE TABLE.
[2020-01-20 04:00] VITALS: BP 93/50
[2020-01-20 04:52] LABS: BASOPHILS 0.2 % (0-2); EOSINOPHILS 1.8 % (0-7); HEMATOCRIT 38.4 % (36.0-48.0); IMMATURE GRANULOCYTES 0.3 % (0-5); LYMPHOCYTES 30.7 % (15-50); MCH 31.1 pg (26.0-34.0); MCHC 31.3 g/dL (31.0-37.0); MCV 99.5 fL (80.0-100.0); MEAN PLATELET VOLUME 12.2 fL (7.4-10.4); MONOCYTES 6.3 % (2-11); NEUTROPHILS 60.7 % (40-80); PLATELET COUNT 163 10x3/uL (130-400); RBC 3.86 10x6/uL (4.00-5.40); RDW 14.4 % (11.5-14.5); WBC 10.3 10x3/uL (4.8-10.8)
--- NOTE | 2020-01-20 04:54 | NUR ---
COLLECTED STOOL FOR ORDERED STUDIES AND DELIVERED TO LAB.
[2020-01-20 05:06] LABS: ANION GAP 8.3 mmol/L (8-16); CALCIUM 8.3 mg/dL (8.5-10.1); CARBON DIOXIDE 29.1 mmol/L (21.0-32.0); CREATININE - SERUM 0.8 mg/dL (0.6-1.3)
[2020-01-20 05:12] LABS: POTASSIUM - SERUM 3.4 mmol/L (3.5-5.1)
--- NOTE | 2020-01-20 08:00 | NUR ---
ASSESSMENT PER FLOW SHEET. PATIENT IS WITHOUT DISTRESS. NPO FOR GASTIC SCAN.MONITOR FOR NEEDS
[2020-01-20 09:30] VITALS: BP 124/58
--- NOTE | 2020-01-20 12:25 | NUR ---
LEFT UNIT VIA WHEELCHAIR FOR GASTRIC SCAN
--- NOTE | 2020-01-20 13:51 | NUR ---
BACK FROM GASTRIC SCAN. MEDS ORDERED PER MAR
--- NOTE | 2020-01-20 14:09 | NUR ---
Nutrition Follow-up: Chart reviewed. Patient went for GES today. Possible colonoscopy in 1-2 days. Has been clear liquid and full liquid since admit x 3 days now. Diet: Full Liquid PO intake: 600mL recorded on 01/18/20, none recorded recently Last BM: 01/20/20- she continues with diarrhea Meds noted: NS@100. Labs noted: K 3.4(L) Recommend continue to advance diet as medically able. Will add Ensure clear to diet order to help patient meet calorie/protein needs. RD following.
[2020-01-20 17:51] VITALS: BP 103/58
[2020-01-20 21:55] VITALS: BP 151/76
[2020-01-21] VITALS: BP 168/73
--- NOTE | 2020-01-21 03:13 | NUR ---
PT RESTING IN BED. EYES CLOSED. NO SIGNS OF DISTRESS. BREATHING EVEN AND UNLABORED. IV SITE RT FA DRESSING CLEAN DRY AND INTACT. NO SIGNS OF INFECTION OR INFULTRATION. SKIN CLEAN DRY AND INTACT. LUNG SOUNDS CLEAR. BOWEL SOUNDS HYPERACTIVE. ABD TENDER TO PALPATION. WILL CONTINUE PLAN OF CARE. CALL LIGHT IN REACH. BED LOWERED AND LOCKED. BED RAILS UPX2.
[2020-01-21 04:00] VITALS: BP 168/66
--- NOTE | 2020-01-21 04:43 | NUR ---
I have reviewed this patient and I concur with the Shift Assessment completed by the Licensed Practical Nurse today this shift.
[2020-01-21 06:38] LABS: BASOPHILS 0.2 % (0-2); EOSINOPHILS 2.6 % (0-7); HEMATOCRIT 38.9 % (36.0-48.0); HEMOGLOBIN 12.6 g/dL (12-16); IMMATURE GRANULOCYTES 0.2 % (0-5); LYMPHOCYTES 31.1 % (15-50); MCH 31.7 pg (26.0-34.0); MCHC 32.4 g/dL (31.0-37.0); MCV 97.7 fL (80.0-100.0); MEAN PLATELET VOLUME 12.3 fL (7.4-10.4); MONOCYTES 7.9 % (2-11); PLATELET COUNT 172 10x3/uL (130-400); RBC 3.98 10x6/uL (4.00-5.40); RDW 14.2 % (11.5-14.5); WBC 9.2 10x3/uL (4.8-10.8)
[2020-01-21 07:03] LABS: ANION GAP 10.3 mmol/L (8-16); CARBON DIOXIDE 29.6 mmol/L (21.0-32.0); CREATININE - SERUM 0.8 mg/dL (0.6-1.3)
[2020-01-21 07:04] LABS: POTASSIUM - SERUM 2.9 mmol/L (3.5-5.1)
--- NOTE | 2020-01-21 08:25 | NUR ---
DR AWARE OF K OF 2.9 THIS AM, NEW ORDERS NOTED
--- NOTE | 2020-01-21 08:27 | NUR ---
RESTING IN BED, NO DISTRESS NOTED, NPO FOR COLONSCOPY, CONT TO MONITOR PAIN
[2020-01-21 09:05] VITALS: BP 143/65
[2020-01-21 12:34] VITALS: BP 105/51
--- NOTE | 2020-01-21 14:45 | NUR ---
TAKEN TO COLONSCOPY PER BED, PT NPO AND PREOPED
[2020-01-21 20:00] VITALS: BP 134/65
[2020-01-22] VITALS: BP 128/54
--- NOTE | 2020-01-22 00:29 | NUR ---
I have reviewed this patient and I concur with the Shift Assessment completed by the Licensed Practical Nurse today this shift.
--- NOTE | 2020-01-22 01:24 | NUR ---
PT RESTING IN BED. EYES CLOSED. NO SIGNS OF DISTRESS. BREATHING EVEN AND UNLABORED. IV SITE RT FA DRESSING CLEAN DRY AND INTACT. NO SIGNS OF INFECTION OR INFULTRATION. LUNG SOUNDS CLEAR. BOWEL SOUNDS HYPERACTIVE. SKIN CLEAN DRY AND INTACT. WILL CONTINUE PLAN OF CARE. CALL LIGHT IN REACH. BED LOWERED AND LOCKED. BED RAILS UPX2.
[2020-01-22 04:00] VITALS: BP 94/63
[2020-01-22 05:37] LABS: BASOPHILS 0.1 % (0-2); EOSINOPHILS 0 % (0-7); HEMATOCRIT 40.5 % (36.0-48.0); HEMOGLOBIN 13.2 g/dL (12-16); IMMATURE GRANULOCYTES 0.4 % (0-5); LYMPHOCYTES 8.1 % (15-50); MCH 31.9 pg (26.0-34.0); MCHC 32.6 g/dL (31.0-37.0); MCV 97.8 fL (80.0-100.0); MEAN PLATELET VOLUME 12.2 fL (7.4-10.4); MONOCYTES 1.1 % (2-11); NEUTROPHILS 90.3 % (40-80); PLATELET COUNT 196 10x3/uL (130-400); RBC 4.14 10x6/uL (4.00-5.40); RDW 14.5 % (11.5-14.5); WBC 8.5 10x3/uL (4.8-10.8)
[2020-01-22 06:20] LABS: CALCIUM 8.6 mg/dL (8.5-10.1); CARBON DIOXIDE 25.8 mmol/L (21.0-32.0)
[2020-01-22 06:22] LABS: POTASSIUM - SERUM 3.8 mmol/L (3.5-5.1)
[2020-01-22 08:00] VITALS: BP 160/73
--- NOTE | 2020-01-22 10:16 | NUR ---
PT RESTING IN BED COMFORTABLY. ALERT AND ORIENTED X4 UPON ENTERING. RIGHT FOREARM IV WITH NORMAL SALINE @ 75. UP ADLIB. PT SCAN HAS BEEN COMPLETED, WILL CONTACT DR. LANCASTER TO SEE IF WE CAN RESTART PT DIET ORDERS. DENIES ANY NEEDS. BED IN LOWEST POSITION, BED RAILS X2, CALL LIGHT WITHIN REACH. WILL CONTINUE TO MONITOR.
--- NOTE | 2020-01-22 10:33 | MORECARE ---
CASE MANAGEMENT DISCHARGE SUMMARY PATIENT: HUMBERTO CHOW UNIT: [id number] ADM DATE: 01/16/20 AGE: 74 : 46 SEX: F ROOM[facility]BED: D.[facility] AUTHOR: NOVA GUERRA PHYSICIAN: REFERRING PHYSICIAN: KIRSTY GONSALEZ MD DATE OF SERVICE: 01/22/20 Discharge Plan Patient Name: HUMBERTO CHOW Facility: [facility]:[place] : 1945 Planned Disposition: Anticipated Discharge Date: Discharge Date: Expected LOS: Initial Reviewer: [email or web address] Initial Review Date: 01/22/2020 Generated: 01/22/20 11:32 am Patient Name: HUMBERTO CHOW Page [phone] at 1033 All edits/amendments must be made on the electronic document DICTATION DATE: 01/22/20 1032 TOOL HONING MACHINE SET UP OPERATOR: RODRIGO 01/22/20 1032 RPT#: [id number] DC DATE: STATUS: ADM IN [facility] [address] [place] [address] END OF REPORT
--- NOTE | 2020-01-22 10:42 | MORECARE ---
CASE MANAGEMENT DISCHARGE SUMMARY PATIENT: HUMBERTO CHOW UNIT: [id number] ADM DATE: 01/16/20 AGE: 74 : 47 SEX: F ROOM/BED: D.2233 AUTHOR: NOVA GUERRA PHYSICIAN: REFERRING PHYSICIAN: KIRSTY GONSALEZ MD DATE OF SERVICE: 01/22/20 Discharge Plan Patient Name: HUMBERTO CHOW Facility: [facility]:[place] : 1945 Planned Disposition: Anticipated Discharge Date: Discharge Date: Expected LOS: Initial Reviewer: [email or web address] Initial Review Date: 01/22/2020 Generated: 01/22/20 11:41 am Comments DCP- Discharge Planning Updated by [email or web address]: Janine Bee on 01/22/20 9:[address] Patient Name: HUMBERTO CHOW Admission Status: Elective Accout number: [id number] Admission Date: 01-16-2020 : 1945 Admission Diagnosis:UNSPECIFIED ABDOMINAL PAIN Attending: KIRSTY GONSALEZ Current LOS: 6 Anticipated DC Date: Planned Disposition: Primary Insurance: MEDICARE A & B Discharge Planning Comments: CM met with patient at bedside after explaining CM role and obtaining verbal consent. CM discussed availability / needs of home health, REHAB and medical equipment. PATIENT DENIES ANY DISCHARGE NEEDS. Patient Access Coordinator: Janine Bee DCPIA - Discharge Planning Initial Assessment Updated by [email or web address]: Janine Bee on 01/22/20 10:35 am * Is the patient Alert and Oriented? Yes * PCP [facility] * Pharmacy [facility] * Preadmission Environment Home with Family * ADLs Independent * Other Equipment NEBS,O2 [facility] * Community resources currently utilized None * Additional services required to return to the preadmission environment? No * Can the patient safely return to the preadmission environment? Yes * Has this patient been hospitalized within the prior 30 days at any hospital? No Last DP export: 01/22/20 9:33 a Patient Name: HUMBERTO CHOW Page [phone] at 1042 All edits/amendments must be made on the electronic document DICTATION DATE: 01/22/20 1041 MANAGER URGENT CARE: RODRIGO 01/22/20 1041 RPT#: [id number] DC DATE: STATUS: ADM IN [facility] [address] [facility] [place] [address] END OF REPORT
[2020-01-22 12:01] VITALS: BP 122/74
--- NOTE | 2020-01-22 13:12 | NUR ---
ADMINISTERED MEDICATION AT THIS TIME, NO DIFFICULTIES. PT ATE LUNCH, TOLERATING WELL. RT IN THE ROOM AT THIS TIME. DENIES ANY NEEDS. FAMILY AT BEDSIDE. WILL CONTINUE TO MONITOR.
--- NOTE | 2020-01-22 16:52 | NUR ---
PT UPRIGHT IN BED, MEDICATION ADMINISTERED AT THIS TIME. NO DIFFICULTIES. PROVIDED PT WITH SNACK AND DRINK PER REQUET. DENIES ANY OTHER NEEDS. BED IN LOWEST POSITION, BED RAILS X2, CALL LIGHT WITHIN REACH. WILL CONTINUE TO MONITOR.
[2020-01-22 17:03] VITALS: BP 102/78
--- NOTE | 2020-01-22 18:37 | NUR ---
ADMINISTERED MEDICATION VIA IV, TOLERATED WELL. PT IS ON THE BEDSIDE AT THIS TIME. DENIES ANY NEEDS. BED IN LOWEST POSITION, CALL LIGHT WITHIN REACH. WILL CONTINUE TO MONITOR.
--- NOTE | 2020-01-22 19:22 | NUR ---
I have reviewed this patient and I concur with the Shift Assessment completed by the Licensed Practical Nurse today this shift.
[2020-01-22 20:00] VITALS: BP 122/59
--- NOTE | 2020-01-22 20:00 | NUR ---
PATIENT SITTING IN CHAIR WATCHING TV. NO S/S OF ACUTE DISTRESS. NO C/O AT THIS TIME. PATIENT HAS RIGHT FOREARM NORMAL SALINE @ 75 ML/HR. IV IS PATENT WITHOUT REDNESS, SWELLING, OR TENDERNESS. PATIENT IS UP ADLIB. PATIENT IS NPO AFTER MIDNIGHT. CALL LIGHT WITHIN REACH. WILL CONTINUE TO MONITOR.
[2020-01-23] VITALS (13 sets, daily range): BP systolic 137–163; BP diastolic 61–88
--- NOTE | 2020-01-23 | NUR ---
PATIENT IS HAVING PANIC ATTACK. KLONOPIN WAS GIVEN AT 2045. PATIENT USUALLY GETS KLONOPIN TID, BUT WITH THE PROCEDURES THAT SHE HAS BEEN HAVING SHE HAS MISSED DOSES. DR. DEL TORO WAS PAGED. CALL LIGHT WITHIN REACH. WILL CONTINUE TO MONITOR.
--- NOTE | 2020-01-23 00:55 | NUR ---
DR. PACHECO PAGED, AND AN ORDER FOR A ONE TIME DOSE 0.5 MG XANAX WAS GIVEN. ONCE VERIFIED, XANANX WILL BE GIVEN. CALL LIGHT WITHIN REACH. WILL CONTINUE TO MONITOR.
--- NOTE | 2020-01-23 01:30 | NUR ---
PATIENT GIVEN XANAX. PATIENT STILL ROCKING AND STATING THAT SHE "WANTS TO SCREAM". PATIENT IN BED WATCHING TV. CALL LIGHT WITHIN REACH. WILL CONTINUE TO MONITOR.
--- NOTE | 2020-01-23 04:36 | NUR ---
I have reviewed this patient and I concur with the Shift Assessment completed by the Licensed Practical Nurse today this shift.
[2020-01-23 05:10] LABS: BASOPHILS 0.1 % (0-2); EOSINOPHILS 0 % (0-7); HEMATOCRIT 37.9 % (36.0-48.0); HEMOGLOBIN 12.3 g/dL (12-16); IMMATURE GRANULOCYTES 0.4 % (0-5); LYMPHOCYTES 13.6 % (15-50); MCH 31.5 pg (26.0-34.0); MCHC 32.5 g/dL (31.0-37.0); MCV 96.9 fL (80.0-100.0); MEAN PLATELET VOLUME 12.1 fL (7.4-10.4); NEUTROPHILS 80.9 % (40-80); PLATELET COUNT 184 10x3/uL (130-400); RBC 3.91 10x6/uL (4.00-5.40); RDW 14.2 % (11.5-14.5)
[2020-01-23 05:15] LABS: WBC 16.4 10x3/uL (4.8-10.8)
[2020-01-23 05:27] LABS: APTT 31.3 SECONDS (22.8-39.4); INR 1.23 (0.85-1.17); PROTIME 15.4 SECONDS (11.6-15.0)
[2020-01-23 05:37] LABS: ANION GAP 9.4 mmol/L (8-16); CALCIUM 8.4 mg/dL (8.5-10.1); CARBON DIOXIDE 28.7 mmol/L (21.0-32.0); CREATININE - SERUM 1.2 mg/dL (0.6-1.3)
[2020-01-23 05:48] LABS: POTASSIUM - SERUM 3.1 mmol/L (3.5-5.1)
--- NOTE | 2020-01-23 07:00 | NUR ---
RECIEVED PT FROM WASTE REMOVALIST. UPON ENTERING PT ALERT AND ORIENTED X4. PT IS UP ADLIB, RIGHT FOREARM IV WITH NS @75, ROOM AIR. ELECTROLYTE PROTOCOL. PT DENIES ANY NEEDS UPON LEAVING ROOM. BED IN LOWEST POSITION, BED RAILS X2, CALL LIGHT WITHIN REACH. WILL CONTINUE TO MONITOR.
--- NOTE | 2020-01-23 08:31 | NUR ---
ADMINISTERED MORNING MEDICATION AT THIS TIME WITH A SIP OF WATER PER NPO ORDER. MARKETING DEVELOPMENT SPECIALIST IN ROOM OBTAINING VITALS AT THIS TIME. PT DENIES ANY NEEDS. WILL CONTINUE TO MONITOR.
--- NOTE | 2020-01-23 09:45 | NUR ---
PT HAS SIGNED ALL PREOP CONSENTS, NEW 20 GA IV HAS BEEN STARTED TO THE LEFT IV. RESTING COMFORTABLY. DENIES ANY NEEDS. WILL CONTINUE TO MONITOR.
--- NOTE | 2020-01-23 12:31 | NUR ---
ADMINISTERED MEDICATION AT THIS TIME, NO DIFFICULTIES. FAMILY AT BEDSIDE. AIDE OBTAINING VITALS AT THIS TIME. DENIES ANY NEEDS. BED IN LOWEST POSITION, BED RAILS X2, CALL LIGHT WITHIN REACH. WILL CONTINUE TO MONITOR.
--- NOTE | 2020-01-23 13:30 | NUR ---
PT OUT OF ROOM FOR PROCEDURE. IN ROOM.
--- NOTE | 2020-01-23 13:56 | NUR ---
Nutrition follow-up: Pt NPO for procedure PO intake of regular diet has been ~75% average of meals Pt has been NPO for several meals 2/2 tests and procedures Labs reviewed Wt: 140# RDN following.
--- NOTE | 2020-01-23 15:23 | NUR ---
I have reviewed this patient and I concur with the Shift Assessment completed by the Licensed Practical Nurse today this shift.
--- NOTE | 2020-01-23 16:18 | NUR ---
REPORT CALLED FROM RECOVERY, PT DOING WELL. WILL RETURN TO ROOM SHORTLY.
--- NOTE | 2020-01-23 16:32 | NUR ---
PT BACK TO ROOM. VITALS ASSESSED, VSS. RESTING COMFORTABLY IN BED. FAMILY AT BEDSIDE. DENIES ANY NEEDS. BED IN LOWEST POSITION, BED RAILS X2, CALL LIGHT WITHIN REACH. WILL CONTINUE TO MONITOR.
--- NOTE | 2020-01-23 18:26 | NUR ---
ADMINISTERED IV PROTONIX, RESTING COMFORTABLY IN. FREQUENT VITALS COMPLETE. PT PROCEDURE SITE IS STILL C/D/I WILL GOOD PEDAL PULSE. DENIES ANY NEEDS. PT CAN SIT UP AT 1830 AND EAT DINNER. WILL CONTINUE TO MONITOR.
--- NOTE | 2020-01-23 19:00 | NUR ---
ASSESSMENT COMPLETED. SITTING UP IN BED, EATING DINNER. DENIES ANY COMPLAINTS. RIGHT GROIN DRESSING CDI, NO REDNESS, WARMTH, OR SWELLING. PEDAL PULSES PRESENT AND FULL ROM IN BILATERAL FEET. BREATHING ROOM AIR
--- NOTE | 2020-01-23 21:00 | NUR ---
DENIES ANY NEEDS. SITTING UP IN BED, WATCHING TV.
--- NOTE | 2020-01-23 21:53 | NUR ---
WAS TOLD IN REPORT THAT DR. BRISENO WANTED PLAVIX STARTED BACK TONIGHT. PLAVIX WASN'T ON HS MEDS, CALLED PHARMACY AND THEY SAID THAT IT IS GIVEN AT 0900. PAGED IR CHICK SEXER, WHICH IS DR. MANDUJANO, TO CLARIFY THAT PLAVIX WANTED TO BE STARTED TONIGHT AND ANOTHER DOSE AT 0900 OR JUST START AT 0900.
--- NOTE | 2020-01-23 22:15 | NUR ---
PAGED IR IMCU SPECIALIST FOR SECOND TIME.
--- NOTE | 2020-01-23 22:30 | NUR ---
PT C/O N/V X 1. GIVEN PRN ZOFRAN PER ORDERS. ASSISTED BACK TO BED. RIGHT GROIN DRESSING CDI, NO REDNESS, WARMTH, OR SWELLING. PEDAL PULSE PRESENT.
[2020-01-24] VITALS: BP 112/79
--- NOTE | 2020-01-24 01:00 | NUR ---
EYES CLOSED, EASILY WAKES. DENIES ANY NEEDS
--- NOTE | 2020-01-24 03:00 | NUR ---
LAYING BACK IN BED. EYES OPEN. DENIES ANY NEEDS
[2020-01-24 04:00] VITALS: BP 150/80
--- NOTE | 2020-01-24 05:00 | NUR ---
DENIES ANY NEEDS. LAYING BACK IN BED WITH EYES CLOSED, EASILY WAKES WITH DOOR OPENING
[2020-01-24 08:38] VITALS: BP 163/82
[2020-01-24 13:19] VITALS: BP 169/97
[2020-01-24 16:53] VITALS: BP 143/87
[2020-01-24 20:00] VITALS: BP 136/96
--- NOTE | 2020-01-24 20:00 | NUR ---
PATIENT RESTING IN BED WATCHING TV. NO S/S OF ACUTE DISTRESS. NO C/O AT THIS TIME. PATIENT HAS RIGHT FOREARM NORMAL SALINE @ 30 ML/HR. IV IS PATENT WITHOUT REDNESS, SWELLING, OR TENDERNESS. PATIENT HAS SMALL SCAB IN RIGHT GROIN FROM STENT PLACEMENT. PATIENT IS UP ADLIB TO THE BATHROOM. CALL LIGHT WITHIN REACH. WILL CONTINUE TO MONITOR.
[2020-01-25] VITALS: BP 121/49
--- NOTE | 2020-01-25 02:18 | NUR ---
I have reviewed this patient and I concur with the Shift Assessment completed by the Licensed Practical Nurse today this shift.
[2020-01-25 04:00] VITALS: BP 104/59
[2020-01-25 07:15] VITALS: BP 147/73
[2020-01-25] MEDS ORDERED: K-DUR20 MEQ PO (09:34)
--- NOTE | 2020-01-25 10:45 | NUR ---
PATIENT RECIEVED SCHEDULED MEDS AND EXTRA POTASSIUM RIDER. IV INTACT. NO COMPLAINTS AT THIS TIME. WAITING TO GO HOME. EXPLAINED FOR LAB TO DRAW LABS AFTER POTASSIUM FINISHES. PATIENT FAMILY AT BEDSIDE. CALL LIGHT WITHIN REACH.
[2020-01-25 12:00] VITALS: BP 112/61
--- NOTE | 2020-01-25 12:15 | NUR ---
POTASSIUM FINISHED. CALLED FOR LAB TO DRAW PATIENT. PATIENT IV REMOVED WITH CATH TIP INTACT. PATIENT GETTING DRESSED AT THIS TIME.
[2020-01-25 12:37] LABS: HEMATOCRIT 43.8 % (36.0-48.0); HEMOGLOBIN 13.9 g/dL (12-16); LYMPHOCYTES 21.4 % (15-50); MCH 31.2 pg (26.0-34.0); MCHC 31.7 g/dL (31.0-37.0); MCV 98.4 fL (80.0-100.0); MEAN PLATELET VOLUME 10.6 fL (7.4-10.4); NEUTROPHILS 72.8 % (40-80); PLATELET COUNT 138 10x3/uL (130-400); RBC 4.45 10x6/uL (4.00-5.40); RDW 15.1 % (11.5-14.5); WBC 14.3 10x3/uL (4.8-10.8)
[2020-01-25 12:45] LABS: ANION GAP 8.4 mmol/L (8-16); CARBON DIOXIDE 32.9 mmol/L (21.0-32.0); CREATININE - SERUM 1.3 mg/dL (0.6-1.3); POTASSIUM - SERUM 3.3 mmol/L (3.5-5.1)
--- NOTE | 2020-01-25 12:45 | NUR ---
PATIENT RECIEVED DC INSTRUCTIONS. VERBALIZED UNDERSTANDING. NO QUESTIONS AT THIS TIME. FAMILY AT SIDE. ESCORTED PATIENT DOWN TO ER WITH PERSONAL BELONGINGS TO PRIVATE VEHICLE.
--- NOTE | 2020-01-25 22:43 | MORECARE ---
CASE MANAGEMENT DISCHARGE SUMMARY PATIENT: HUMBERTO CHOW UNIT: [id number] ADM DATE: 01/16/20 AGE: 74 : [birth year] SEX: F ROOM/BED: D.2233 AUTHOR: NOVA GUERRA PHYSICIAN: REFERRING PHYSICIAN: KIRSTY GONSALEZ MD DATE OF SERVICE: 01/25/20 Discharge Plan Patient Name: HUMBERTO CHOW Facility: [facility]:[place] : 1945 Planned Disposition: Anticipated Discharge Date: Discharge Date: 01/25/2020 Expected LOS: Initial Reviewer: [email or web address] Initial Review Date: 01/22/2020 Generated: 01/25/20 11:42 pm Comments DCP- Discharge Planning Updated by [email or web address]: Janine Bee on 01/22/20 9:[address] Patient Name: HUMBERTO CHOW Admission Status: Elective Accout number: [id number] Admission Date: 01-16-2020 : 1945 Admission Diagnosis:UNSPECIFIED ABDOMINAL PAIN Attending: KIRSTY GONSALEZ Current LOS: 6 Anticipated DC Date: Planned Disposition: Primary Insurance: MEDICARE A & B Discharge Planning Comments: CM met with patient at bedside after explaining CM role and obtaining verbal consent. CM discussed availability / needs of home health, REHAB and medical equipment. PATIENT DENIES ANY DISCHARGE NEEDS. Ditch Rider: Janine Bee DCPIA - Discharge Planning Initial Assessment Updated by [email or web address]: Janine Bee on 01/22/20 10:35 am * Is the patient Alert and Oriented? Yes * PCP [facility] * Pharmacy [facility] * Preadmission Environment Home with Family * ADLs Independent * Other Equipment NEBS,O2 [facility] * Community resources currently utilized None * Additional services required to return to the preadmission environment? No * Can the patient safely return to the preadmission environment? Yes * Has this patient been hospitalized within the prior 30 days at any hospital? No Coverage Notice Reviewer: [email or web address] - Audelia Camilo Notice Issued Date-Time: 01/25/2020 10:20 Notice Type: IM Discharge Notice Notice Delivered To: Patient Relationship to Patient: Self Lathe Setup Operator Name: Delivery Method: HAND - Hand Delivered Marybeth Days: Prior Verbal Notification: Recipient Understood Notice: Yes Recipient Signature: Yes Med Rec Note Co-signed by Attending: Coverage Notice Comment: Last DP export: 01/22/20 9:42 a Patient Name: HUMBERTO CHOW Page 16396 at 2243 All edits/amendments must be made on the electronic document DICTATION DATE: 01/25/202241 GRADE FOREMAN: RODRIGO 01/25/202241 RPT#: [id number] DC DATE:01/25/20 STATUS: DIS IN [facility] [address] [place] [address] END OF REPORT
== END 2020-01-25 13:36 | disposition home or self-care (01) | DRG 356 ==
LOC: D.ER 17:26 → D.MS 21:21
PROVIDERS: Family Medicine; General Practice; ADMIT Family Medicine; ATTEND Family Medicine
PROC: 0DBN8ZZ Excision of Sigmoid Colon, Via Natural or Artificial Opening Endoscopic (ICD-10-PCS; principal; 2020-01-21)
PROC: 0DBH8ZX Excision of Cecum, Via Natural or Artificial Opening Endoscopic, Diagnostic (ICD-10-PCS; 2020-01-21)
PROC: 04753DZ Dilation of Superior Mesenteric Artery with Intraluminal Device, Percutaneous Approach (ICD-10-PCS; 2020-01-23)
DX: K52.9 Noninfective gastroenteritis and colitis, unspecified (principal); E43 Unspecified severe protein-calorie malnutrition; D72.829 Elevated white blood cell count, unspecified; I10 Essential (primary) hypertension; J44.9 Chronic obstructive pulmonary disease, unspecified; I25.10 Atherosclerotic heart disease of native coronary artery without angina pectoris; K20.9 Esophagitis, unspecified; K29.70 Gastritis, unspecified, without bleeding; K63.5 Polyp of colon; K57.90 Diverticulosis of intestine, part unspecified, without perforation or abscess without bleeding; K64.0 First degree hemorrhoids; Z86.73 Personal history of transient ischemic attack (TIA), and cerebral infarction without residual deficits; Z68.21 Body mass index [BMI] 21.0-21.9, adult

== ENCOUNTER → 2020-01-29 08:21 | Outpatient (CLI) | payer MEDICARE, BC ==
[2020-01-17 16:37] VITALS: BMI 21.9
== END | disposition home or self-care (01) ==
LOC: D.CT 08:21
PROVIDERS: ATTEND Family Medicine
DX: K55.1 Chronic vascular disorders of intestine (principal)

== ENCOUNTER → 2020-01-30 08:02 | Outpatient (CLI) | payer MEDICARE, BC ==
[2020-01-17 16:37] VITALS: BMI 21.9
[~2020-01-30 08:02] MED LIST changes: +ELIQUIS2.5 MG PO; +HYDROCODON-ACE1 EA10 PO
== END | disposition home or self-care (01) ==
LOC: D.CT 08:02
PROVIDERS: ATTEND Family Medicine
DX: K55.1 Chronic vascular disorders of intestine (principal)

== ENCOUNTER 2020-02-01 13:30 | Inpatient (IN) | payer MEDICARE, BC ==
[~2020-02-01] VITALS: Ht 170.2 cm; Wt 59.0 kg
--- NOTE | ~2020-02-01 | HEMODYNAMI ---
PATIENT:HUMBERTO CHOW MEDICAL RECORD: [id number] : [birth year] LOCATION:BeckiDE D.2204 ADMISSION DATE: 02/01/20 Generatedon:02/02/202014:30 Patient name: HUMBERTO CHOW Patient #: [id number] SSN: [id number] : 1945 Date of study: 02/02/2020 Page: Of Hemodynamic Procedure Report Patient Data Patient Demographics Procedure consent was obtained First Name: HUMBERTO Gender: Female Last Name: CLAUDINE : 1945 Middle Initial: LIZBETH Age: 74 year(s) Patient #: [id number] Race: SSN: [id number] Additional ID: [id number] Contact details Address: [address] [place] [address] [place] State: [place] City: [place] Zip code: [address] Past Medical History Allergies Allergen Reaction Date Comments Reported Other allergy 04/03/2019 ASA, mushroom, shellfish, contrast. Other allergy 01/23/2020 IODINE, ASPIRIN, MUSHROOMS Other allergy 02/02/2020 iodine, mushrooms, aspirin Admission Admission Data Admission Date: 02/01/2020 Admission Time: 13:47 Room #: 2204 Procedure Procedure Types Cath Procedure Peripheral Cath Diagnostic Procedure Abd/Extremity Visceral/Mesenteric Mesenteric Arteriogram (Abd Artery) Procedure Description Procedure Date Procedure Date: 02/02/2020 Procedure Start Time: 12:09 Procedure End Time: 14:29 Procedure Staff Name Function Juan F Lewis MD Performing Physician EMILE RIVERA RT Monitor Brian Marques RT Scrub Joey BERNAL RN Nurse Renita Cordova RN Nurse Jeff Martinez MD Additional personnel Procedure Data Cath Procedure Fluoroscopy Diagnostic fluoroscopy Total fluoroscopy Time: time: 89.9 min 89.9 min Diagnostic fluoroscopy Total fluoroscopy dose: dose: 1503 mGy 1503 mGy Contrast Material Contrast Material Type Amount (ml) Isovue 300 12 Entry Location Entry Primary Successful Side Size Upsize Upsize Entry Closure Succes sful Closure Location (Fr) 1 (Fr) 2 (Fr) Remarks Device Remarks Femoral Left 6 Fr artery Short Diagnostic catheters Device Type Used For End Catheter Placement Merit ULTRA BOLUS FLUSH 5Fr 65CM catheter ([id number]) Angiodynamics SOS OMNI 2 NON B 5FR 65CM catheter ([id number]) Merit 5Fr Mikaless catheter (063009) Merit impress King 2 cath 100cm ([id number]) Cook CHG-C 5FR 65CM catheter (N09692) Merit Impress 5Fr SIM 1 Catheter ([id number]) Procedure Medications Medication Administration Route Dosage Lidocaine 1% added to field 20 Heparin Flush Bag added to field 3 bags (1000units/500ml NS) Hemodynamics Rest Pre Cath Intra NCS Post Cath Vital Signs Time etCO2 NIBP Rhythm Pain Sedation (mmHg) (mmHg) Status Level 12:07:24 0 No Cuff NSR 0 (11) , 10(A) No pain 12:11:24 0 No Cuff NSR 0 (11) , 10(A) No pain 12:15:23 0 No Cuff NSR 0 (11) , 10(A) No pain 12:19:23 0 No Cuff NSR 0 (11) , 10(A) No pain 12:23:23 0 No Cuff NSR 0 (11) , 10(A) No pain 12:27:22 0 No Cuff NSR 0 (11) , 10(A) No pain 12:31:22 0 No Cuff NSR 0 (11) , 10(A) No pain 12:35:22 0 No Cuff NSR 0 (11) , 10(A) No pain 12:39:21 0 No Cuff NSR 0 (11) , 10(A) No pain 12:43:21 0 No Cuff NSR 0 (11) , 10(A) No pain 12:47:21 0 No Cuff NSR 0 (11) , 10(A) No pain 12:51:20 0 No Cuff NSR 0 (11) , 10(A) No pain 12:55:20 0 No Cuff NSR 0 (11) , 10(A) No pain 12:59:20 0 No Cuff NSR 0 (11) , 10(A) No pain 13:03:19 0 No Cuff NSR 0 (11) , 10(A) No pain 13:07:19 0 No Cuff NSR 0 (11) , 10(A) No pain 13:11:18 0 No Cuff NSR 0 (11) , 10(A) No pain 13:15:18 0 No Cuff NSR 0 (11) , 10(A) No pain 13:19:18 0 No Cuff NSR 0 (11) , 10(A) No pain 13:23:17 0 No Cuff NSR 0 (11) , 10(A) No pain 13:27:17 0 No Cuff NSR 0 (11) , 10(A) No pain 13:31:17 0 No Cuff NSR 0 (11) , 10(A) No pain 13:35:16 0 No Cuff NSR 0 (11) , 10(A) No pain 13:39:16 0 No Cuff NSR 0 (11) , 10(A) No pain 13:43:16 0 No Cuff NSR 0 (11) , 10(A) No pain 13:47:15 0 No Cuff NSR 0 (11) , 10(A) No pain 13:51:15 0 No Cuff NSR 0 (11) , 10(A) No pain 13:55:15 0 No Cuff NSR 0 (11) , 10(A) No pain 13:59:14 0 No Cuff NSR 0 (11) , 10(A) No pain 14:03:14 0 No Cuff NSR 0 (11) , 10(A) No pain 14:07:13 0 No Cuff NSR 0 (11) , 10(A) No pain 14:11:13 0 No Cuff NSR 0 (11) , 10(A) No pain 14:15:13 0 No Cuff NSR 0 (11) , 10(A) No pain 14:19:13 0 No Cuff NSR 0 (11) , 10(A) No pain 14:23:12 0 No Cuff NSR 0 (11) , 10(A) No pain 14:27:12 0 No Cuff NSR 0 (11) , 10(A) No pain Medications Time Medication Route Dose Verified Delivered Reason Notes Effe ctiveness by by 11:55:48 Lidocaine 1% added 20ml Juan F Rogel for local to vial Debbie Lewis MD anesthetic field MD 11:56:09 Heparin Flush added 3bags Juan F Rogel used for Bag to Debbie Lewis MD procedure (1000units/500ml field MD HENNING) Procedure Log Time Note 11:09:57 Use device set IR Diagnostic 11:09:58 ACIST Syringe (27617) opened to sterile field. 11:09:58 ACIST Hand Control (89211) opened to sterile field. 11:09:58 ACIST Manifold (84453) opened to sterile field. 11:09:59 Bag Decanter (2002S) opened to sterile field. 11:09:59 Sterile Angiographic Pack opened to sterile field. 11:10:00 Tegaderm 4 x 4 (1626W) opened to sterile field. 11:15:54 DOC .035 wire (H17123) opened to sterile field. 11:15:54 MICROPUNCTURE 4FR Cook (D31550) opened to sterile field. 11:15:55 TUBING High Pressure Extension (IABP) opened to sterile field. 11:18:39 - 11:35:00 Brian Marques RT (R) (CV) sent for patient. Start room use. 11:35:01 Time tracking: Regular hours (M-F 7:00 - 5:00) 11:35:05 Plan of Care:Hemodynamics will remain stable., Cardiac rhythm will remain stable., Comfort level will be maintained., Respiratory function will remain adequate., Patient/ family verbilizes understanding of procedure., Procedure tolerated without complication., Recovers from procedure without complications.. 11:35:18 Patient received from Med/Surg to IR Alert and oriented. Tansferred to table in Supine position. 11:35:20 Signed procedure consent form obtained from patient. 11:35:21 Warm blankets applied, and tereza hugger turned on for patient comfort. 11:35:21 Correct patient and procedure confirmed by team. 11:35:22 ECG and BP/O2 sat monitors applied to patient. 11:35:23 - 11:35:29 H&P Date Dictated: 02/02/2020 Within 30 days and on chart.. 11:35:31 Pre-procedure instructions explained to patient. 11:35:31 Pre-op teaching completed and patient verbalized understanding. 11:35:34 Family unavailable. 11:35:40 Family unavailable. 11:35:42 Patient NPO since Midnight. 11:36:14 Patient allergic to Other allergyiodine, mushrooms, aspirin 11:38:08 Is the patient allergic to Iodine/contrast media? Yes. 11:38:09 Was the patient premedicated? Yes 11:38:11 Is patient on blood thinner? Yes. Plavix x2 days ago 11:38:24 Patient diabetic? No. 11:38:25 - 11:38:27 ---- see anethesia note for Pre-sedation anethethesia assessment.---- 11:38:49 - 11:53:08 IV patent on arrival in left forearm with 0.9% NaCl at KVO. 11:53:15 Pre procedure: right posterior tibial pulse Doppler 11:53:20 Pre procedure: left posterior tibial pulse Doppler 11:53:25 Bilateral groins area was prepped with chlora-prep and draped in steril e fashion 11:53:27 Alarms reviewed by Canelo Jeronimo 11:53:27 Sharps counted by scrub and verified by Nirmal 11:53:28 - 11:53:46 A Merit ULTRA BOLUS FLUSH 5Fr 65CM catheter ([id number]) opened to sterile field . 11:55:48 Lidocaine 1% 20ml vial added to field was administered by Juan F Lewis MD; for local anesthetic; Verbal order read back and verified. 11:56:09 Heparin Flush Bag (1000units/500ml NS) 3bags added to field was administered by Juan F Lewis MD; used for procedure; Verbal order read back and verified. 12:04:13 Physician arrived 12:05:31 --------ALL STOP TIME OUT------ 12:05:32 Final Timeout: patient, procedure, and site verified with staff and physician. All members of the team are in agreement. 12:05:34 Bilateral groins site verified by team. 12:05:43 Fire Safety Assessment: A--An alcohol-based skin anteseptic being used preoperatively., C--Open oxygen or nitrous oxide is being used. 12:05:51 3a) 45-59 Moderately reduced kidney function. 12:05:56 Maximum allowable contrast dose (3.7 X eGFR X 0.75)130.42 ml. 12:06:04 Jeff Martinez MD present and monitoring patient for TIVA. 12:06:30 - 12:07:03 Procedure started. 12:07:03 Full Disclosure recording started 12:09:14 Local anesthetic to left femerol artery with Lidocaine 1% by Juan F Lewis MD.INITIAL ACCESS ONLY 12:11:53 Access obtained with 4Fr micropunture. 12:13:48 AMPLATZ Super Stiff 75cm wire ([id number]) opened to sterile field. 12:13:49 SHEATH 6FR [place] (NZH556) opened to sterile field. 12:14:00 A 6 Fr Short sheath was inserted into the Left Femoral artery 12:15:27 GLIDE WIRE ANGLE 180cm (CS6555) opened to sterile field. 12:15:27 GLIDE CATHETER 5FR ANGLED 65cm (CG507) opened to sterile field. 12:15:27 TORQUE DEVICE PLASTIC .038 ( TD01) opened to sterile field. 12:17:37 GLIDE CATHETER 5FR COBRA 65cm (CG502) opened to sterile field. 12:25:50 A AngiodynamAdduplex OMNI 2 NON B 5FR 65CM catheter ([id number]) was opene d to sterile field. . 12:43:42 A Merit 5Fr Mikaless catheter (393172) was opened to sterile field . 12:50:44 Cook ALLAN 1 6FR. Guide sheath opened to sterile field. 13:07:46 SHEATH 6FR Destination (RSR01) opened to sterile field. 13:54:08 ROADRUNNER .035 145 glide wire (G06714) opened to sterile field. 13:54:08 ROADRUNNER .018 260cm glide wire (M18981) opened to sterile field. 14:05:40 A Fastnote impress King 2 cath 100cm ([id number]) was opened to sterile field . 14:14:18 A Vitrina CHG-C 5FR 65CM catheter (A43306) was opened to sterile field. 14:23:08 A Fastnote Impress 5Fr SIM 1 Catheter ([id number]) was opened to sterile field . 14:27:19 Procedure ended.(Physican Out) 14:28:07 Fluoroscopy time 89.90 minutes. 14:28:11 Fluoroscopy dose: 1503 mGy 14:28:11 Flurop Dose total: 1503 14:28:15 Contrast amount:Isovue 300 12ml. 14:28:27 Sharps counted by scrub and verified by R.N. 14:28:28 Insertion/operative site no bleeding no hematoma. 14:28:32 Post-op/insertion site Left Femoral artery dressed using a 4 x 4 and Tegaderm. 14:28:39 Post left femerol artery:stable, soft, clean and dry 14:28:41 Post procedure instruction explained to patient.Patient verbalizes understanding. 14:28:43 Procedure and supply charges have been captured, reviewed, submitted an d are correct. 14:29:12 Operative report dictated upon procedure completion. 14:29:12 See physician's report for complete and final results. 14:29:14 Report given to Med/Surg. 14:29:17 Patient transfered to Med/Surg with Bed. 14:29:20 Procedure ended. 14:29:20 Full Disclosure recording stopped 14:30:11 Vital chart was stopped Device Usage Item Name Manufacture Quantity Catalog Number Hospital Part Current M inimal Lot# / Charge Number Stock Stock Serial# Code ACIST Syringe Acist Medical 1 11617 713998 144925 512801 2 0 (34748) Systems Inc ACIST Hand Acist Medical 1 72957 456579 777331 344728 5 Control Systems Inc (85939) ACIST Manifold Acist Medical 1 78191 660692 648416 293500 5 (07024) Systems Inc Bag Decanter Microtek 1 2001S 025861 96930 184166 5 (2001S) Medical Inc. Sterile Cardinal 1 [id number] 641357 206578 5 Angiographic Health Pack Tegaderm 4 x 4 3M 1 1626W 586170 010011 961418 5 (1626W) DOC .035 wire [facility] 1 J36778 146420 611648 5 (P63986) MICROPUNCTURE [facility] 1 P98956 644459 595765 679437 5 4FR Cook (T74766) TUBING High [facility] 1 [id number] 690813 047351 517041 5 Pressure Extension (IABP) SHEATH 5FR Terumo 1 JMR004 394890 125847 364420 5 [place] (QAY201) [facility] ULTRA [facility] 1 [id number] 114909 783948 5 BOLUS FLUSH 5Fr 65CM catheter ([id number]) AMPLATZ Super [employer] 1 [id number] 597397 932143 397994 5 Stiff 75cm Scientific wire ([id number]) SHEATH 6FR Terumo 1 ZQF388 170978 292025 462227 4 0 [place] (EGP766) GLIDE WIRE Terumo 1 DB2340 953105 664360 180282 5 ANGLE 180cm (WI8250) GLIDE CATHETER Terumo 1 CG507 212152 769553 5 5FR ANGLED 65cm (CG507) TORQUE DEVICE [employer] 1 TD01 515198 914542 760195 5 PLASTIC .038 ( Scientific TD01) GLIDE CATHETER Terumo 1 CG502 751573 859201 5 5FR COBRA 65cm (CG502) Angiodynamics Angiodynamics 1 49766341 866196 02802 247392 5 SOS OMNI 2 NON B 5FR 65CM catheter (30843964) Merit 5Fr [facility] Medical 1 597921 854642 004181 5 Mikaless catheter (116350) Cook ALLAN 1 Cook [facility] 1 K45919 118634 393575 5 [id number] 6FR. Guide sheath SHEATH 6FR Terumo 1 RSR01 159765 19411 206209 5 Destination (RSR01) [facility] 1 X42473 373599 396883 850343 5 .035 145 glide wire (W92296) [facility] 1 X43565 053063 877136 279400 5 .018 260cm glide wire (I49883) [facility] Medical 1 [id number] 273699 237391 0 King 2 cath 100cm (005020PSQ2) Cook CHG-C 5FR Cook [facility] 1 X84725 466798 350339 518561 5 65CM catheter (E23830) Merit Impress [facility] Medical 1 31806EJV8 555736 885768 391763 5 5Fr SIM 1 Catheter (32418XZP5) Signature Audit [place] Stage Time Signature Unsigned Intra-Procedure 02/02/2020 EMILE RIVERA RT 2:30:07 PM (R) [facility] [address] [facility] [place] [address]
[~2020-02-01 13:30] MED LIST changes: -ELIQUIS2.5 MG PO; -HYDROCODON-ACE1 EA10 PO
--- NOTE | 2020-02-01 13:48 | NUR ---
TRIAGED PT IN ER , PT SUPPOST TO BE A DIRECT ADMIT FOR DR. GONSALEZ.
[2020-02-01 14:16] VITALS: BP 162/75; BMI 20.4
[2020-02-01 14:25] LABS: BASOPHILS 0.1 % (0-2); EOSINOPHILS 0.7 % (0-7); HEMATOCRIT 44.5 % (36.0-48.0); HEMOGLOBIN 14.2 g/dL (12-16); IMMATURE GRANULOCYTES 0.2 % (0-5); LYMPHOCYTES 26.5 % (15-50); MCH 31.3 pg (26.0-34.0); MCHC 31.9 g/dL (31.0-37.0); MCV 98.2 fL (80.0-100.0); MEAN PLATELET VOLUME 11.7 fL (7.4-10.4); MONOCYTES 8.3 % (2-11); NEUTROPHILS 64.2 % (40-80); RBC 4.53 10x6/uL (4.00-5.40); RDW 14.3 % (11.5-14.5); WBC 10.4 10x3/uL (4.8-10.8)
[2020-02-01 14:41] LABS: PLATELET COUNT 224 10x3/uL (130-400)
[2020-02-01 15:01] LABS: INR 1.06 (0.85-1.17); PROTIME 13.7 SECONDS (11.6-15.0)
[2020-02-01 15:02] LABS: APTT 26.7 SECONDS (22.8-39.4)
--- NOTE | 2020-02-01 15:11 | NUR ---
verbal order per dr rueda ,interventional radiologist , to give pre medication orders for iodinated contrast allergy. print of protocol standing order given to nurse king on med surg at 1510.
--- NOTE | 2020-02-01 16:48 | NUR ---
PATIENT IV STARTED IN RIGHT WRIST AND RIGHT FA FOR HEPARIN DRIP AND IVF. FIRST IV X 1 STICK. 2ND X 2 STICK. PATIENT TOLERATED WITH SMALL AMOUNT OF PAIN. MEDS STARTED AND ZOFRAN PRN GIVEN. FAMILY AT BEDSIDE AT THIS TIME WITH CALL LIGHT WITHIN REACH.
[2020-02-01 16:50] VITALS: BP 122/50
--- NOTE | 2020-02-01 18:51 | NUR ---
PATIENT IN BED WITH IV X 2 INTACT. SCHEDULED MEDS GIVEN. CALL LIGHT WITHIN REACH.
--- NOTE | 2020-02-01 19:45 | NUR ---
PATIENT REQUESTED MORPHINE FOR PAIN. ADMINISTERED BY DAYSHIFT NURSE. PATIENT DENIES OTHER NEEDS AT THIS TIME. BED IN LOWEST POSITION AND CALL LIGHT WITHIN REACH. ENCOURAGED THE PATIENT TO CALL IF SHE HAS NEEDS. WILL CONTINUE TO MONITOR.
[2020-02-01 20:00] VITALS: BP 134/48
[2020-02-02] VITALS (13 sets, daily range): BP systolic 128–169; BP diastolic 47–85; BMI 20.3
--- NOTE | 2020-02-02 08:35 | HP ---
PATIENT: HUMBERTO CHOW MEDICAL RECORD: [id number] ACCOUNT: [id number] LOCATION:D.MS Connell2204 : 47 ADMISSION DATE: 02/01/20 PCP: KIRSTY GONSALEZ MD HISTORY AND PHYSICAL EXAMINATION CHIEF COMPLAINT: Abdominal pain. HISTORY OF PRESENT ILLNESS: A 74-year-old female who has been having a lot of abdominal problems over the last couple of months. She has had approximately 30-pound weight loss since all these symptoms began. She was hospitalized from 01/16/2020 to 01/25/2020 with abdominal pain. Colonoscopy at that time showed changes consistent with ischemic colitis. She underwent CTA of the abdomen and pelvis and it showed significant stenosis of the superior mesenteric artery, celiac artery, and inferior mesenteric artery. Interventional radiology was consulted and a stent was able to be placed in the superior mesenteric artery on 01/23/2020. She was discharged home on 01/25/2020. She started having the same abdominal pains after she ate and she had a repeat CTA of the abdomen and pelvis with and without contrast on 01/30/2020. 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 The other arteries were unchanged. After speaking with Dr. Lewis, he recommended she be directly admitted here to the hospital today and started prep for another IR procedure for Sunday02/02/2020 as SHE IS ALLERGIC TO DYE, so she is admitted. PAST MEDICAL HISTORY: Hypertension, coronary artery disease, peripheral vascular disease, carotid stenosis, COPD, hypertension, arthritis, and back pain. She also has mild clonus followed by Dr. Delatorre. PAST SURGICAL HISTORY: Appendectomy, bilateral heel spur surgery, bladder sling, right leg fem-pop bypass surgery, back surgery, abdominal aortic aneurysm repair by Dr. Vora, carotid endarterectomy by Dr. Vora, and stent to the superior mesenteric artery on 01/23/2020 by IR. ALLERGIES: CONTRAST DYE, ASPIRIN, SHELLFISH. HOME MEDICATIONS: Include, Ventolin HFA 2 puffs q.4 hours p.r.n., wheeze/shortness of breath, Plavix 75 mg once a day, atorvastatin 10 mg once a day, clonazepam 0.5 mg in the morning, 0.25 mg at noon, 0.25 mg in the evening, hydrochlorothiazide 25 mg once a day, potassium chloride 20 mEq twice a day, Flonase nasal spray p.r.n., Carafate 1 gram p.o. a.c. and at bedtime, and vitamin D 2000 units a day. HABITS: Former smoker, occasional alcohol, no illicit drug use. SOCIAL HISTORY: She is retired. She is , lives with her . FAMILY HISTORY: Noncontributory. REVIEW OF SYSTEMS: GENERAL: She has had about a 30-pound weight loss over the last few months. HEENT: No particular sinus or allergy problems. 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 CARDIAC: See above history. She has been seen by the aircraft manager. GASTROINTESTINAL: See above history. She has had EGD and colonoscopy by Dr. Downs recently. GENITOURINARY: He has had bladder sling. No significant problems there. HISTORY AND PHYSICAL [id number] HUMBERTO CHOW MUSCULOSKELETAL: Has arthritic aches and pains, history of back surgery. NEUROLOGIC: Had TIA in the past. No seizures. No migraines. PSYCHIATRIC: She probably has depression with all this going on and has had little anxiety at times. PHYSICAL EXAMINATION: VITAL SIGNS: Temperature 97.9, pulse 72, respirations 16, blood pressure 162/75, O2 sat 96%. GENERAL: She is awake and alert. She is complaining of pain in her abdomen. HEENT: Unremarkable. NECK: Supple. HEART: Regular rate and rhythm without murmur. LUNGS: Fairly clear. No wheeze. ABDOMEN: Diffuse tenderness. No guarding, no rebound, no mass. Bowel sounds are active. EXTREMITIES: No edema. NEUROLOGIC: Unremarkable. LABORATORY DATA: CBC with a white count of 10,400, hemoglobin 14.2, hematocrit 44.5. INR 1.06. ASSESSMENT: A 74-year-old female with a known history of mesenteric ischemia with results and abdominal pain with an occluded stent in the superior mesenteric artery. PLAN: She is admitted. Plavix has been stopped. She is on a heparin drip. She is prepping for procedure tomorrow, starting with prednisone now and then Benadryl later. Interventional radiology has been consulted and further recommendations per them. TRANSINT:[id number] Voice Confirmation ID: [id number] DOCUMENT ID: [id number] KIRSTY GONSALEZ MD at 0876 CC: [id number] DICTATION DATE: 02/02/20105 RN OR LPN: 02/02/206 ADM IN [facility] [address] [facility]
[2020-02-02 09:12] LABS: ANION GAP 4.7 mmol/L (8-16); CALCIUM 8.9 mg/dL (8.5-10.1); CREATININE - SERUM 1.2 mg/dL (0.6-1.3); POTASSIUM - SERUM 3.7 mmol/L (3.5-5.1)
[2020-02-02 09:58] LABS: BASOPHILS 0 % (0-2); EOSINOPHILS 0.1 % (0-7); HEMATOCRIT 42.2 % (36.0-48.0); HEMOGLOBIN 13.7 g/dL (12-16); IMMATURE GRANULOCYTES 0.2 % (0-5); LYMPHOCYTES 7.4 % (15-50); MCH 31.8 pg (26.0-34.0); MCHC 32.5 g/dL (31.0-37.0); MCV 97.9 fL (80.0-100.0); MEAN PLATELET VOLUME 12.4 fL (7.4-10.4); MONOCYTES 1.6 % (2-11); NEUTROPHILS 90.7 % (40-80); PLATELET COUNT 227 10x3/uL (130-400); RBC 4.31 10x6/uL (4.00-5.40); RDW 14.4 % (11.5-14.5); WBC 10.4 10x3/uL (4.8-10.8)
[2020-02-02 10:03] LABS: INR 1.11 (0.85-1.17); PROTIME 14.3 SECONDS (11.6-15.0)
--- NOTE | 2020-02-02 20:00 | NUR ---
PATIENT RESTING IN BED WITH NO S/S OF DISTRESS AND DENIES NEEDS AT THIS TIME. BED IN LOWEST POSITION AND CALL LIGHT WITHIN REACH. ENCOURAGED THE PATIENT TO CALL IF SHE HAS NEEDS. WILL CONTINUE TO MONITOR.
--- NOTE | 2020-02-02 21:35 | NUR ---
ADMINISTERED MEDS PER ORDERS. PATIENT DENIES OTHER NEEDS. WILL CONTINUE TO MONITOR.
[2020-02-03] VITALS: BP 121/55
[2020-02-03 04:00] VITALS: BP 142/72
[2020-02-03 08:41] VITALS: BP 121/66
--- NOTE | 2020-02-03 08:45 | NUR ---
PATIENT WANTING HER KLONIPIN, NORCO, AND TO BE DISCHARGED BY DR GONSALEZ. I TOLD HER I CAN TAKE CARE OF TWO OUT OF THREE OF HER NEEDS. CL IN REACH. MARYLU IN ROOM. NO FURTHER NEEDS AT THIS TIME. DOMINIQUE
[2020-02-03 12:07] VITALS: BP 126/63
--- NOTE | 2020-02-03 13:51 | MORECARE ---
CASE MANAGEMENT DISCHARGE SUMMARY PATIENT: HUMBERTO CHOW UNIT: [id number] ADM DATE: 02/01/20 AGE: 74 : 47 SEX: F ROOM/BED: D.2204 AUTHOR: NOVA GUERRA PHYSICIAN: REFERRING PHYSICIAN: KIRSTY GONSALEZ MD DATE OF SERVICE: 02/03/20 Discharge Plan Patient Name: HUMBERTO CHOW Facility: [facility]:[place] : 1945 Planned Disposition: Home Anticipated Discharge Date: Discharge Date: Expected LOS: Initial Reviewer: [id number] Initial Review Date: 02/01/2020 Generated: 02/03/20 2:50 pm Comments DCP- Discharge Planning Updated by [email or web address]: Perla Alcala on 02/03/20 12:[address] Patient Name: HUMBERTO CHOW Admission Status: ER Accout number: [id number] Admission Date: 02-01-2020 : 1945 Admission Diagnosis:VASCULAR DISORDER OF INTESTINE, UNSPECIFIED Attending: KIRSTY GONSALEZ Current LOS: 2 Anticipated DC Date: Planned Disposition: Home Primary Insurance: MEDICARE A & B Discharge Planning Comments: CM met with patient to complete initial dc planning assessment. CM educated patient on the CM role and verbal consent given by patient to complete assessment. Patient lives at home with her spouse where she is independent with her care. At discharge patient plans to return home and feels this is a safe discharge. CM discussed availability of home health, rehab services, and medical equipment. She has home o2 and nebulizer from [facility]. PEGGY signed. IMM also signed and explained. Her will be her tractor trailer driver home today. Patient denied known discharge needs at this time. CM will continue to follow and will assist as needed with dc plans/needs. Parts Professional: Perla Alcala DCPIA - Discharge Planning Initial Assessment Updated by [email or web address]: Perla Alcala on 02/03/20 1:47 pm * Is the patient Alert and Oriented? Yes * How many steps to enter\exit or inside your home? * PCP [facility] * [facility] * Preadmission Environment Home with Family * ADLs Independent * Equipment Nebulizer Oxygen Rolling Walker * List name and contact numbers for known caregivers / representatives who currently or will assist patient after discharge: MARYLU CHOW (SPOUSE) [phone] * Verbal permission to speak to the caregivers and representatives has been obtained from the patient. N/A * Community resources currently utilized None * Additional services required to return to the preadmission environment? No * Can the patient safely return to the preadmission environment? Yes * Has this patient been hospitalized within the prior 30 days at any hospital? Yes Coverage Notice Reviewer: [email or web address] Kirk Alcala Notice Issued Date-Time: 02/03/2020 13:45 Notice Type: IM Discharge Notice Notice Delivered To: Patient Relationship to Patient: Risk Specialist Name: Delivery Method: HAND - Hand Delivered Marybeth Days: Prior Verbal Notification: Recipient Understood Notice: Yes Recipient Signature: Yes Med Rec Note Co-signed by Attending: Coverage Notice Comment: Patient Name: HUMBERTO CHOW Page [id number] at 1351 All edits/amendments must be made on the electronic document DICTATION DATE: 02/03/20 1350 BREAKER OILER: RODRIGO 02/03/20 1350 RPT#: [id number] DC DATE: STATUS: ADM IN [facility] [address] [place] [address] END OF REPORT
[2020-02-03 16:25] VITALS: Ht 170.2 cm; Wt 59.0 kg
--- NOTE | 2020-02-03 16:32 | NUR ---
SPOKE WITH ROQUE AT DR GONSALEZ OFFICE NOTIFYING HIM OF DR GARAY NOTE AND STATEMENT PT CAN LEAVE AFTER MEDS ARE GIVEN. WAITING ON DR GONSALEZ DISCHARGE ORDER NOW.
[2020-02-03 16:42] VITALS: BP 141/79
[2020-02-03] MEDS ORDERED: ELIQUIS2.5 MG PO (17:40)
[2020-02-03] MEDS ORDERED: HYDROCODON-ACE1 EA10 PO (17:41)
--- NOTE | 2020-02-03 18:17 | NUR ---
IV THERAPY REMOVED FROM LEFT FOREARM. DISCHARGE INSTRUCTIONS GIVEN. PATIENT AND MARYLU VERBALIZED UNDERSTANDING. TAKEN DOWN TO ER ENTRANCE.
--- NOTE | 2020-02-04 09:56 | MORECARE ---
CASE MANAGEMENT DISCHARGE SUMMARY PATIENT: HUMBERTO CHOW UNIT: [id number] ADM DATE: 02/01/20 AGE: 74 : 46 SEX: F ROOM/BED: D.2204 AUTHOR: NOVA GUERRA PHYSICIAN: REFERRING PHYSICIAN: KIRSTY GONSALEZ MD DATE OF SERVICE: 02/04/20 Discharge Plan Patient Name: HUMBERTO CHOW Facility: [facility]:[place] : 1945 Planned Disposition: Home Anticipated Discharge Date: Discharge Date: 02/03/2020 Expected LOS: Initial Reviewer: [email or web address] Initial Review Date: 02/01/2020 Generated: 02/04/20 10:56 am Comments DCP- Discharge Planning Updated by [email or web address]: Perla Alcala on 02/03/20 12:[address] Patient Name: HUMBERTO CHOW Admission Status: ER Accout number: [id number] Admission Date: 02-01-2020 : 1945 Admission Diagnosis:VASCULAR DISORDER OF INTESTINE, UNSPECIFIED Attending: KIRSTY GONSALEZ Current LOS: 2 Anticipated DC Date: Planned Disposition: Home Primary Insurance: MEDICARE A & B Discharge Planning Comments: CM met with patient to complete initial dc planning assessment. CM educated patient on the CM role and verbal consent given by patient to complete assessment. Patient lives at home with her spouse where she is independent with her care. At discharge patient plans to return home and feels this is a safe discharge. CM discussed availability of home health, rehab services, and medical equipment. She has home o2 and nebulizer from [facility]. JEANCARLOS signed. IMM also signed and explained. Her will be her chuck wagon driver home today. Patient denied known discharge needs at this time. CM will continue to follow and will assist as needed with dc plans/needs. Polishing Pad Mounter: Perla Alcala DCPIA - Discharge Planning Initial Assessment Updated by [id number]: Perla Alcala on 02/03/20 1:47 pm * Is the patient Alert and Oriented? Yes * How many steps to enter\exit or inside your home? * PCP [facility] * [facility] * Preadmission Environment Home with Family * ADLs Independent * Equipment Nebulizer Oxygen Rolling Walker * List name and contact numbers for known caregivers / representatives who currently or will assist patient after discharge: MARYLU CHOW (SPOUSE) [phone] * Verbal permission to speak to the caregivers and representatives has been obtained from the patient. N/A * Community resources currently utilized None * Additional services required to return to the preadmission environment? No * Can the patient safely return to the preadmission environment? Yes * Has this patient been hospitalized within the prior 30 days at any hospital? Yes Coverage Notice Reviewer: [email or web address] Kirk Alcala Notice Issued Date-Time: 02/03/2020 13:45 Notice Type: IM Discharge Notice Notice Delivered To: Patient Relationship to Patient: Production Operations Manager Name: Delivery Method: HAND - Hand Delivered Marybeth Days: Prior Verbal Notification: Recipient Understood Notice: Yes Recipient Signature: Yes Med Rec Note Co-signed by Attending: Coverage Notice Comment: imm served and explained Reviewer: [email or web address] Alcala Notice Issued Date-Time: 02/03/2020 13:45 Notice Type: Patient Choice Letter Notice Delivered To: Patient Relationship to Patient: Production Operations Manager Name: Delivery Method: HAND - Hand Delivered Marybeth Days: Prior Verbal Notification: Recipient Understood Notice: Yes Recipient Signature: Yes Med Rec Note Co-signed by Attending: Coverage Notice Comment: jeancarlos martins Last DP export: 02/03/20 12:51 p Patient Name: HUMBERTO CHOW Page [id number] at 0956 All edits/amendments must be made on the electronic document DICTATION DATE: 02/04/20955 ORTHOPEDIC SHOE MAKER: RODRIGO 02/04/20955 RPT#: [id number] DC DATE:02/03/20 STATUS: DIS IN [facility] [address] [place] [address] END OF REPORT
== END 2020-02-03 18:22 | disposition home or self-care (01) | DRG 314 ==
LOC: D.ER 13:30 → EDSTATUS 13:43 → D.MS 13:47
PROVIDERS: General Practice; ADMIT Family Medicine; ATTEND Family Medicine
PROC: B4101ZZ Fluoroscopy of Abdominal Aorta using Low Osmolar Contrast (ICD-10-PCS; principal; 2020-02-02 11:30)
DX: T82.856A Stenosis of peripheral vascular stent, initial encounter (principal); E43 Unspecified severe protein-calorie malnutrition; K55.9 Vascular disorder of intestine, unspecified; Y83.9 Surgical procedure, unspecified as the cause of abnormal reaction of the patient, or of later complication, without mention of misadventure at the time of the procedure; I10 Essential (primary) hypertension; I25.10 Atherosclerotic heart disease of native coronary artery without angina pectoris; J44.9 Chronic obstructive pulmonary disease, unspecified; Z68.20 Body mass index [BMI] 20.0-20.9, adult